=== PATIENT | male | born 1930 | race Hispanic/Latino ===

== ENCOUNTER → 2017-07-19 | Outpatient (CLI) | payer OTHER ==
[~2017-07-19] MED LIST: ASPI-1005 PO; FENO134C PO; IMAT400T2 PO; LISI1TAB11 PO; METO-391 PO; POTA20TA12 PO; SIMV10TA6 PO; SITA100T12 PO; WARF-57 PO; WARF2.5T85 PO
== END | disposition home or self-care (01) ==
LOC: SHCH 14:55
PROVIDERS: ATTEND Internal Medicine Cardiovascular Disease
DX: I07.1 Rheumatic tricuspid insufficiency (principal); Z95.2 Presence of prosthetic heart valve
CPT/HCPCS: 93306

== ENCOUNTER → 2019-03-06 | Outpatient (CLI) | payer OTHER ==
[~2019-03-06] MED LIST changes: -LISI1TAB11 PO; +LISI1TAB28 PO; -SIMV10TA6 PO; +SIMV10TA97 PO
== END | disposition home or self-care (01) ==
LOC: RAH 10:37
PROVIDERS: ATTEND Family Medicine
DX: F03.90 Unspecified dementia, unspecified severity, without behavioral disturbance, psychotic disturbance, mood disturbance, and anxiety (principal)
CPT/HCPCS: 70551

== ENCOUNTER 2019-04-17 16:58 | Emergency (ER) | payer OTHER ==
[2019-04-17 17:57] LABS: BASOPHILS % (AUTO) 1.8 % (0.0-5.0); EOSINOPHILS % (AUTO) 3.5 % (0.0-8.0); HEMATOCRIT 32.8 % (42-54); LYMPHOCYTES % (AUTO) 13.8 % (21.0-51.0); MEAN CORPUSCULAR HEMOGLOBIN 33.2 pg (27.0-33.0); MEAN CORPUSCULAR HGB CONC 33.5 g/dL (32.0-36.0); MEAN CORPUSCULAR VOLUME 99.1 fL (79-99); MONOCYTES % (AUTO) 9.9 % (3.0-13.0); NEUTROPHILS % (AUTO) 70.4 % (40.0-77.0); PLATELET COUNT (AUTO) 148 K/uL (130-400); RED BLOOD CELL COUNT(AUTO) 3.31 MIL/uL (4.50-6.20); RED CELL DISTRIBUTION WIDTH 15.7 % (11.0-15.5); WHITE BLOOD COUNT (AUTO) 5.1 K/uL (4.8-10.8)
[2019-04-17 18:16] LABS: BILIRUBIN,TOTAL 1.8 mg/dL (0.2-1.0); TOTAL PROTEIN, SERUM 6.3 g/dL (6.0-8.3)
[2019-04-17 18:21] LABS: INR 2.6 (0.85-1.15); PROTHROMBIN TIME 26.3 SEC (9.6-11.6)
[2019-04-17 18:34] LABS: APPEARANCE,URINE Clear (CLEAR); BILIRUBIN,URINE Negative (NEGATIVE); COLOR,URINE Dark Yellow (YELLOW); GLUCOSE, URINE (UA) Negative (NEGATIVE); KETONES,URINE Negative (NEGATIVE); LEUKOCYTE ESTERASE ,URINE Small (NEGATIVE); NITRATE,URINE Negative (NEGATIVE); OCCULT BLOOD,URINE Negative (NEGATIVE); PROTEIN,URINE POS 2+ mg/dL (NEGATIVE)
[2019-04-17 18:59] LABS: BACTERIA,URINE Few /HPF (None Seen); MUCUS,URINE Few LPF (None Seen); RBC,URINE None Seen /HPF (0-1); SQUAMOUS EPITHELIAL CELL,UR 0-2 /HPF (0-2)
[2019-04-17] MEDS ORDERED: SODIUM CHLORIDE 0.9% 500ML 500 ML IV ONE (20:40)
[2019-04-17] MEDS ORDERED: FAMOTIDINE/PF 20 MG/2 ML VIAL IV ONE (20:40)
== END 2019-04-17 21:22 | disposition home or self-care (01) ==
LOC: EDH 16:58
DX: R10.13 Epigastric pain (principal); R00.1 Bradycardia, unspecified; R11.2 Nausea with vomiting, unspecified; R19.7 Diarrhea, unspecified; I10 Essential (primary) hypertension; E11.9 Type 2 diabetes mellitus without complications; I48.91 Unspecified atrial fibrillation; Z88.0 Allergy status to penicillin; Z79.82 Long term (current) use of aspirin; Z79.899 Other long term (current) drug therapy
CPT/HCPCS: 36415; 71045; 74176; 80053; 81001; 82550; 83690; 83735; 84484; 85025; 85610; 85730; 93005; 96374; 99285; J3490; J7040

== ENCOUNTER 2019-04-23 11:32 | Observation (INO) | payer OTHER ==
[~2019-04-23] VITALS: Ht 167.6 cm; Wt 77.8 kg
[2019-04-23 12:14] LABS: BASOPHILS % (AUTO) 1.8 % (0.0-5.0); HEMATOCRIT 36.4 % (42-54); LYMPHOCYTES % (AUTO) 14.1 % (21.0-51.0); MEAN CORPUSCULAR HEMOGLOBIN 33.2 pg (27.0-33.0); MEAN CORPUSCULAR HGB CONC 33.5 g/dL (32.0-36.0); MEAN CORPUSCULAR VOLUME 98.9 fL (79-99); MONOCYTES % (AUTO) 8.2 % (3.0-13.0); NEUTROPHILS % (AUTO) 72.3 % (40.0-77.0); PLATELET COUNT (AUTO) 162 K/uL (130-400); RED BLOOD CELL COUNT(AUTO) 3.68 MIL/uL (4.50-6.20)
[2019-04-23 12:51] LABS: APPEARANCE,URINE Clear (CLEAR); BILIRUBIN,URINE Negative (NEGATIVE); COLOR,URINE Yellow (YELLOW); GLUCOSE, URINE (UA) Negative (NEGATIVE); KETONES,URINE Negative (NEGATIVE); LEUKOCYTE ESTERASE ,URINE Small (NEGATIVE); NITRATE,URINE Negative (NEGATIVE); OCCULT BLOOD,URINE Negative (NEGATIVE); PH,URINE 6.5 (5.0-8.0); PROTEIN,URINE POS 2+ mg/dL (NEGATIVE)
[2019-04-23 12:54] LABS: CREATININE 0.9 mg/dL (0.5-1.5); POTASSIUM 3.7 mmol/L (3.5-5.1)
[2019-04-23 12:58] LABS: INR 2.44 (0.85-1.15); PARTIAL THROMBOPLASTIN TIME 35.8 SEC (26.3-35.5); PROTHROMBIN TIME 24.8 SEC (9.6-11.6)
[2019-04-23 13:10] LABS: ALBUMIN 3.5 g/dL (3.5-5.0); BILIRUBIN,TOTAL 1.7 mg/dL (0.2-1.0); TOTAL PROTEIN, SERUM 6.8 g/dL (6.0-8.3)
[2019-04-23 13:29] LABS: BACTERIA,URINE Rare /HPF (None Seen); RBC,URINE 0-1 /HPF (0-1); SQUAMOUS EPITHELIAL CELL,UR Rare /HPF (0-2)
[2019-04-23 13:45] LABS: B-TYPE NATRIURETIC PEPTIDE 784 pg/mL (0-100)
[2019-04-23] MEDS ORDERED: FUROSEMIDE 10 MG/ML 4ML VIAL ONE (15:03)
[2019-04-23] MEDS ORDERED: NITROGLYCERIN 1GM/1 INCH PACKET TD ONE (15:04)
[2019-04-23] MEDS ORDERED: LACTULOSE 20 GM/30 ML UDCUP PO PRN (18:00)
[2019-04-23] MEDS ORDERED: POTASSIUM CHLORIDE 10% ELIXIR 20 MEQ/15 ML UDCUP PO PRN (18:00)
[2019-04-23] MEDS ORDERED: POTASSIUM CHLORIDE 20 MEQ ERTAB PO PRN (18:00)
[2019-04-23] MEDS ORDERED: POTASSIUM CHLORIDE 20MEQ/100ML 100 ML IV PRN (18:00)
[2019-04-23] MEDS ORDERED: ONDANSETRON HCL 4 MG/2 ML VIAL IV PRN (18:00)
[2019-04-23] MEDS ORDERED: MAG HYDROX/AL HYDROX/SIMETH ES 30 ML SUSP UDCUP PO PRN (18:00)
[2019-04-23] MEDS ORDERED: GLUCAGON 1MG KIT 1 MG ML IM PRN (18:00)
[2019-04-23] MEDS ORDERED: ALBUTEROL SULFATE 0.083% 2.5 MG/3 ML INH IH PRN (18:00)
[2019-04-23] MEDS ORDERED: DEXTROSE 50%-WATER 50 ML DISP.SYRIN IV PRN (18:00)
[2019-04-23] MEDS ORDERED: HYDRALAZINE HCL 20 MG/ML VIAL IV PRN (18:00)
[2019-04-23] MEDS ORDERED: GUAIFENESIN-DM 200/20 MG 10 ML PO PRN (18:00)
[2019-04-23] MEDS ORDERED: NITROGLYCERIN 0.4 MG SL TAB SL PRN (18:00)
[2019-04-23] MEDS ORDERED: ACETAMINOPHEN 325 MG TAB PO PRN ×2 (18:00)
[2019-04-23] MEDS ORDERED: LIDOCAINE HCL-MPF 1% 2ML VIAL IV PRN (18:00)
[2019-04-23 19:45] VITALS: BP 153/84
[2019-04-23] MEDS: INSULIN HUMULIN R 100 UNIT/ML 3ML SQ SCH (21:00)
[2019-04-23] MEDS: FAMOTIDINE/PF 20 MG/2 ML VIAL IV SCH (21:25)
[2019-04-23 22:04] LABS: BASOPHILS % (AUTO) 1.5 % (0.0-5.0); HEMATOCRIT 34.6 % (42-54); LYMPHOCYTES % (AUTO) 14.5 % (21.0-51.0); MEAN CORPUSCULAR HGB CONC 33.5 g/dL (32.0-36.0); MEAN CORPUSCULAR VOLUME 98.6 fL (79-99); MONOCYTES % (AUTO) 10.7 % (3.0-13.0); NEUTROPHILS % (AUTO) 69.8 % (40.0-77.0); PLATELET COUNT (AUTO) 143 K/uL (130-400); RED BLOOD CELL COUNT(AUTO) 3.51 MIL/uL (4.50-6.20); RED CELL DISTRIBUTION WIDTH 15.4 % (11.0-15.5); WHITE BLOOD COUNT (AUTO) 6.1 K/uL (4.8-10.8)
[2019-04-23 23:47] VITALS: BP 146/75
[2019-04-24] MEDS ORDERED: DONE5TAB33 PO (01:49)
[2019-04-24] MEDS ORDERED: WARF-57 PO (01:49)
[2019-04-24] MEDS ORDERED: LISI-617 PO (01:49)
[2019-04-24] MEDS ORDERED: FAMO-135 PO (01:49)
[2019-04-24] MEDS ORDERED: TAMS-1 PO (01:49)
[2019-04-24] MEDS ORDERED: FAMOTIDINE 10 MG PO SCH (02:15)
[2019-04-24] MEDS ORDERED: FUROSEMIDE 10 MG/ML 4ML VIAL IVP SCH (03:00)
[2019-04-24 04:00] VITALS: BP 133/81
[2019-04-24 05:36] LABS: HEMOGLOBIN A1C 6.3 % (4.0-6.0)
[2019-04-24] MEDS: INSULIN HUMULIN R 100 UNIT/ML 3ML SQ SCH ×2 (05:41→11:19)
[2019-04-24 05:53] LABS: CREATININE 1.1 mg/dL (0.5-1.5); POTASSIUM 3.1 mmol/L (3.5-5.1); THYROID STIMULATING HORMONE 2.82 uIU/mL (0.36-3.74)
[2019-04-24 07:30] VITALS: BP 144/86
[2019-04-24] MEDS: FAMOTIDINE/PF 20 MG/2 ML VIAL IV SCH (08:43)
[2019-04-24] MEDS ORDERED: METOPROLOL SUCCINATE 50 MG TAB.SR.24H PO SCH (09:00)
[2019-04-24] MEDS ORDERED: TAMSULOSIN HCL 0.4 MG CAP.ER.24H PO SCH (09:00)
[2019-04-24] MEDS ORDERED: ENOXAPARIN SODIUM 30 MG/0.3 ML SQ SCH (09:00)
[2019-04-24] MEDS ORDERED: LISINOPRIL 5 MG TABLET PO SCH (09:00)
[2019-04-24] MEDS ORDERED: LINAGLIPTIN 5 MG TABLET PO SCH (09:00)
[2019-04-24] MEDS ORDERED: ASPIRIN 81MG TAB.CHEW PO SCH (09:00)
[2019-04-24] MEDS ORDERED: IMATINIB MESYLATE 400 MG PO SCH (09:00)
--- NOTE | 2019-04-24 09:23 | NUR ---
DR SARAVIA/CONSULT SPOKE TO MONICA AT [facility]- STATED DR SARAVIA WILL BE BY LATER
[2019-04-24 11:00] VITALS: BP 112/63
[2019-04-24] MEDS ORDERED: POTASSIUM CHLORIDE 20 MEQ ERTAB PO SCH (12:00)
[2019-04-24] MEDS ORDERED: POTA20PA32 PO (13:23)
[2019-04-24] MEDS ORDERED: FURO20TA4 PO (13:23)
[2019-04-24] MEDS ORDERED: WARFARIN SODIUM 5 MG TAB PO SCH (17:00)
[2019-04-24] MEDS ORDERED: DONEPEZIL HCL 5 MG TAB PO SCH (21:00)
[2019-04-24] MEDS ORDERED: SIMVASTATIN 10 MG TABLET PO SCH (21:00)
== END 2019-04-24 15:00 | disposition home or self-care (01) ==
LOC: EDH 11:32 → EDHIP 16:15 → INTOOBSV 16:15 → 4DH 19:40
PROVIDERS: ADMIT Internal Medicine; ATTEND Internal Medicine
DX: I50.33 Acute on chronic diastolic (congestive) heart failure (principal); D63.8 Anemia in other chronic diseases classified elsewhere; E11.9 Type 2 diabetes mellitus without complications; I48.91 Unspecified atrial fibrillation; E78.5 Hyperlipidemia, unspecified; N40.0 Benign prostatic hyperplasia without lower urinary tract symptoms; Z95.2 Presence of prosthetic heart valve; Z79.01 Long term (current) use of anticoagulants; Z90.49 Acquired absence of other specified parts of digestive tract; Z88.0 Allergy status to penicillin
CPT/HCPCS: 36415 ×2; 71045 ×2; 74176; 80048; 80053; 81001; 82150; 82550; 82948 ×3; 83036; 83690; 83880; 84439; 84443; 84484; 85025 ×2; 85610; 85730; 87040 ×2; 87804 ×2; 93005; 93306; 94664; 96374; 96375; 96376; 99285; G0378 ×9; J1940 ×2; J3490

== ENCOUNTER 2019-05-15 20:12 | Emergency (ER) | payer OTHER ==
[~2019-05-15 20:12] MED LIST changes: +DONE5TAB33 PO; +FAMO-135 PO; -FENO134C PO; +LISI10TA7 PO; -LISI1TAB28 PO; -METO-391 PO; +TAMS-1 PO; -WARF2.5T85 PO
[2019-05-15] MEDS ORDERED: ONDANSETRON HCL 4 MG/2 ML VIAL ONE (20:37)
[2019-05-15] MEDS ORDERED: MORPHINE SULFATE 4 MG/1ML SYG ONE (20:38)
[2019-05-15 20:45] LABS: BASOPHILS % (AUTO) 1.3 % (0.0-5.0); EOSINOPHILS % (AUTO) 3.7 % (0.0-8.0); HEMATOCRIT 34.2 % (42-54); LYMPHOCYTES % (AUTO) 14.4 % (21.0-51.0); MEAN CORPUSCULAR HEMOGLOBIN 32.9 pg (27.0-33.0); MEAN CORPUSCULAR VOLUME 99.7 fL (79-99); MONOCYTES % (AUTO) 9.3 % (3.0-13.0); NEUTROPHILS % (AUTO) 70.9 % (40.0-77.0); PLATELET COUNT (AUTO) 141 K/uL (130-400); RED BLOOD CELL COUNT(AUTO) 3.43 MIL/uL (4.50-6.20); RED CELL DISTRIBUTION WIDTH 14.2 % (11.0-15.5); WHITE BLOOD COUNT (AUTO) 4.6 K/uL (4.8-10.8)
[2019-05-15 20:53] LABS: CREATININE 1.2 mg/dL (0.5-1.5); POTASSIUM 3.9 mmol/L (3.5-5.1)
[2019-05-15 20:56] LABS: INR 3.09 (0.85-1.15); PARTIAL THROMBOPLASTIN TIME 38.2 SEC (26.3-35.5)
[2019-05-15 20:58] LABS: ALBUMIN 3.4 g/dL (3.5-5.0); BILIRUBIN,TOTAL 1.6 mg/dL (0.2-1.0); TOTAL PROTEIN, SERUM 6.9 g/dL (6.0-8.3)
[2019-05-15 21:00] LABS: APPEARANCE,URINE Turbid (CLEAR); BILIRUBIN,URINE Negative (NEGATIVE); COLOR,URINE Dark Yellow (YELLOW); GLUCOSE, URINE (UA) Negative (NEGATIVE); KETONES,URINE Trace mg/dL (NEGATIVE); LEUKOCYTE ESTERASE ,URINE Moderate (NEGATIVE); NITRATE,URINE Negative (NEGATIVE); OCCULT BLOOD,URINE Negative (NEGATIVE); PH,URINE 5.5 (5.0-8.0); PROTEIN,URINE POS 2+ mg/dL (NEGATIVE)
[2019-05-15 21:16] LABS: BACTERIA,URINE Few /HPF (None Seen); RBC,URINE None Seen /HPF (0-1)
[2019-05-15 21:17] LABS: MUCUS,URINE Many LPF (None Seen); SQUAMOUS EPITHELIAL CELL,UR None Seen /HPF (0-2)
[2019-05-15] MEDS ORDERED: SODIUM CHLORIDE 0.9% 50 ML IV ONE (22:07)
[2019-05-15] MEDS ORDERED: CEFTRIAXONE SODIUM 1 GM ONE (22:07)
== END 2019-05-15 23:05 | disposition home or self-care (01) ==
LOC: EDH 20:12
DX: N39.0 Urinary tract infection, site not specified (principal); I10 Essential (primary) hypertension; I48.91 Unspecified atrial fibrillation; E11.9 Type 2 diabetes mellitus without complications; E78.00 Pure hypercholesterolemia, unspecified; Z88.0 Allergy status to penicillin; Z95.1 Presence of aortocoronary bypass graft
CPT/HCPCS: 36415; 74176; 80053; 81001; 82550; 83690; 84484; 85025; 85610; 85730; 93005; 96374; 96375; 99285; J0696; J2270; J2405

== ENCOUNTER 2019-05-19 06:24 | Emergency (ER) | payer OTHER ==
[2019-05-19 07:44] LABS: BASOPHILS % (AUTO) 1.6 % (0.0-5.0); EOSINOPHILS % (AUTO) 3.4 % (0.0-8.0); HEMATOCRIT 33.3 % (42-54); LYMPHOCYTES % (AUTO) 14.8 % (21.0-51.0); MEAN CORPUSCULAR HEMOGLOBIN 33.8 pg (27.0-33.0); MEAN CORPUSCULAR HGB CONC 33.3 g/dL (32.0-36.0); MEAN CORPUSCULAR VOLUME 101.5 fL (79-99); MONOCYTES % (AUTO) 8.5 % (3.0-13.0); NEUTROPHILS % (AUTO) 71.2 % (40.0-77.0); PLATELET COUNT (AUTO) 132 K/uL (130-400); RED BLOOD CELL COUNT(AUTO) 3.28 MIL/uL (4.50-6.20); WHITE BLOOD COUNT (AUTO) 3.9 K/uL (4.8-10.8)
[2019-05-19 07:48] LABS: CREATININE 1.3 mg/dL (0.5-1.5); POTASSIUM 4.1 mmol/L (3.5-5.1)
[2019-05-19 07:51] LABS: ALBUMIN 3.6 g/dL (3.5-5.0); BILIRUBIN,TOTAL 1.6 mg/dL (0.2-1.0)
[2019-05-19] MEDS ORDERED: ONDANSETRON HCL 4 MG/2 ML VIAL ONE (09:10)
[2019-05-19 10:13] LABS: APPEARANCE,URINE Clear (CLEAR); BILIRUBIN,URINE Negative (NEGATIVE); COLOR,URINE Yellow (YELLOW); GLUCOSE, URINE (UA) Negative (NEGATIVE); KETONES,URINE Trace mg/dL (NEGATIVE); LEUKOCYTE ESTERASE ,URINE Small (NEGATIVE); NITRATE,URINE Negative (NEGATIVE); OCCULT BLOOD,URINE Negative (NEGATIVE); PROTEIN,URINE POS 1+ mg/dL (NEGATIVE); UROBILINOGEN,URINE 0.2 mg/dL (0.2-1.0)
[2019-05-19 10:20] LABS: BACTERIA,URINE Few /HPF (None Seen); MUCUS,URINE Few LPF (None Seen); RBC,URINE 0-1 /HPF (0-1); SQUAMOUS EPITHELIAL CELL,UR Few /HPF (0-2)
== END 2019-05-19 20:12 | disposition home or self-care (01) ==
LOC: EDH 06:24
DX: R10.9 Unspecified abdominal pain (principal); J90 Pleural effusion, not elsewhere classified; R11.2 Nausea with vomiting, unspecified; I10 Essential (primary) hypertension; E11.9 Type 2 diabetes mellitus without complications; I48.91 Unspecified atrial fibrillation; E78.00 Pure hypercholesterolemia, unspecified; Z88.0 Allergy status to penicillin; Z79.899 Other long term (current) drug therapy; Z95.1 Presence of aortocoronary bypass graft
CPT/HCPCS: 36415; 74176; 80053; 81001; 82150; 83690; 85025; 93005; 96374; 99285; J2405

== ENCOUNTER 2019-06-28 06:00 | Day surgery (SDC) | payer OTHER ==
[~2019-06-28 06:00] MED LIST changes: +DRON400T2 PO; -FAMO-135 PO; +LISI-617 PO; -LISI10TA7 PO
--- NOTE | 2019-06-28 06:35 | NUR ---
EKG pt EKG sinus rhythm on admission to day patient .notified Mariela Petersen RN of results Dr Dhillon notified Addendum: 06/28/19 at 0742 by RAJ CHEUNG RN RN Amended: Links added.
[2019-06-28 06:39] LABS: BASOPHILS % (AUTO) 1.4 % (0.0-5.0); EOSINOPHILS % (AUTO) 2.5 % (0.0-8.0); LYMPHOCYTES % (AUTO) 20.5 % (21.0-51.0); MEAN CORPUSCULAR HEMOGLOBIN 33.7 pg (27.0-33.0); MEAN CORPUSCULAR HGB CONC 33.5 g/dL (32.0-36.0); MEAN CORPUSCULAR VOLUME 100.6 fL (79-99); MONOCYTES % (AUTO) 8.1 % (3.0-13.0); PLATELET COUNT (AUTO) 110 K/uL (130-400); RED BLOOD CELL COUNT(AUTO) 3.38 MIL/uL (4.50-6.20); RED CELL DISTRIBUTION WIDTH 13.5 % (11.0-15.5); WHITE BLOOD COUNT (AUTO) 4.4 K/uL (4.8-10.8)
[2019-06-28 06:52] LABS: CREATININE 1.2 mg/dL (0.5-1.5)
[2019-06-28 06:53] LABS: INR 1.54 (0.85-1.15); PROTHROMBIN TIME 16.4 SEC (9.6-11.6)
--- NOTE | 2019-06-28 07:15 | NUR ---
Dr Dhillon cancelled case . Instructed pt Dr Dhillon will call with instructions in the afternoon pt and daughter aware Addendum: 06/28/19 at 0746 by RAJ CHEUNG RN RN Amended: Links added.
== END 2019-06-28 07:20 | disposition home or self-care (01) ==
LOC: DAH 06:00
PROVIDERS: ATTEND Internal Medicine Cardiovascular Disease
DX: I48.19 Other persistent atrial fibrillation (principal); I25.10 Atherosclerotic heart disease of native coronary artery without angina pectoris; I10 Essential (primary) hypertension; F03.90 Unspecified dementia, unspecified severity, without behavioral disturbance, psychotic disturbance, mood disturbance, and anxiety; E11.9 Type 2 diabetes mellitus without complications; Z95.1 Presence of aortocoronary bypass graft; Z95.2 Presence of prosthetic heart valve; Z53.8 Procedure and treatment not carried out for other reasons; I45.10 Unspecified right bundle-branch block
CPT/HCPCS: 36415; 80048; 82948; 85025; 85610; 85730; 93005; A4222; A4223; A4606

== ENCOUNTER → 2019-07-11 | Outpatient (CLI) | payer OTHER | END | disposition home or self-care (01) | LOC: RAH 07:48 | PROVIDERS: ATTEND Internal Medicine Gastroenterology | DX: K74.60 Unspecified cirrhosis of liver (principal); Z90.49 Acquired absence of other specified parts of digestive tract | CPT/HCPCS: 76700; 93975 ==

== ENCOUNTER → 2019-07-14 | Outpatient (CLI) | payer OTHER | END | disposition home or self-care (01) | LOC: SHCH 12:32 | PROVIDERS: ATTEND Internal Medicine Cardiovascular Disease | DX: I36.1 Nonrheumatic tricuspid (valve) insufficiency (principal) | CPT/HCPCS: 93306; 93356 ==

== ENCOUNTER 2019-08-10 06:01 | Observation (INO) | payer OTHER ==
[~2019-08-10] VITALS: Ht 167.6 cm; Wt 76.6 kg
[2019-08-10] VITALS (11 sets, daily range): BP systolic 88–150; BP diastolic 35–66; PULSE 51–61; RESP 16–18; TEMP 97.2–98.1
[~2019-08-10 06:01] MED LIST changes: -ASPI-1005 PO; -DONE5TAB33 PO; -DRON400T2 PO; -IMAT400T2 PO; -LISI-617 PO; -POTA20TA12 PO; -SIMV10TA97 PO; -SITA100T12 PO; +SODIUM CHLORIDE 0.9% 1000ML 1,000 ML IV ONE; -TAMS-1 PO; -WARF-57 PO
[2019-08-10] MEDS ORDERED: SODIUM CHLORIDE 0.9% 1000ML 1,000 ML IV ONE (06:13)
[2019-08-10] MEDS ORDERED: LIDOCAINE HCL 1% 20 ML VIAL ONE (08:01)
[2019-08-10] MEDS ORDERED: PROPOFOL 10 MG/ML 20ML VIAL IV ONE ×2 (08:01)
[2019-08-10] MEDS ORDERED: LIDOCAINE HCL-MPF 2% 5ML VIAL ONE (08:01)
[2019-08-10] MEDS ORDERED: GLYCOPYRROLATE 1 MG/5 ML SYRINGE ONE (08:07)
[2019-08-10] MEDS ORDERED: ATROPINE SULFATE 0.1 MG/ML 10 ML SYG IVP ONE (08:08)
[2019-08-10] MEDS ORDERED: EPINEPHRINE 1 MG/ML AMPULE ONE (08:10)
--- NOTE | 2019-08-10 08:15 | NUR ---
EGD CANCEL PER SR OJEDA, PULSE DECREASE TO 37, ROBINNAL AND ATROPINE GIVEN. PULSE INCREASE TO 58. TRANSFER TO PACU AND ADMITTED PER HOSPITALIST.
--- NOTE | 2019-08-10 08:20 | NUR ---
CONSULT CARDIOLOGY OR HOSPITALIST PER DR. OJEDA DUE TO BRADYCARDIA (HR 30'S) DURING INDUCTION OF ANESTHESIA.
--- NOTE | 2019-08-10 08:31 | NUR ---
CONSULT HOSPITALIST CONSULT ORDER PER DR. OJEDA ANESTHESIOLOGIST DUE TO BRADYCARDIA AND CLEARANCE FOR DISCHARGE, PROCEDURE ABORTED. DR. HILARIO NOTIFIED OF CONSULT, WILL COME TO PACU TO ASSESS. Addendum: 08/10/19 at 0926 by SOFI MATA RN RN CORRECTION: PROCEDURE NOT DONE.
--- NOTE | 2019-08-10 08:58 | NUR ---
CARDIOLOGY CONSULT DR. PERALES CONSULT ORDERED BY DR. HILARIO. DR. PERALES OFFICE NOTIFIED, SPOKE TO ZORA.
[2019-08-10] MEDS: LISINOPRIL 5 MG TABLET PO SCH (09:00)
[2019-08-10] MEDS ORDERED: DRONEDARONE HYDROCHLORIDE 400 MG TABLET PO SCH (09:00)
[2019-08-10] MEDS: IMATINIB MESYLATE 400 MG PO SCH (09:00)
[2019-08-10] MEDS ORDERED: ONDANSETRON HCL 4 MG/2 ML VIAL IVP PRN (12:15)
[2019-08-10] MEDS ORDERED: ACETAMINOPHEN 325 MG TAB PO PRN (12:15)
[2019-08-10] MEDS: POTASSIUM CHLORIDE 20 MEQ ERTAB PO SCH (18:43)
[2019-08-10] MEDS: SIMVASTATIN 10 MG TABLET PO SCH (19:57)
[2019-08-10] MEDS: TAMSULOSIN HCL 0.4 MG CAP.ER.24H PO SCH (19:57)
[2019-08-11 04:10] VITALS: BP 151/55; PULSE 50; RESP 16; TEMP 97.9
[2019-08-11 07:30] VITALS: BP 144/62; PULSE 52; RESP 18; TEMP 97.6
[2019-08-11] MEDS ORDERED: DRONEDARONE HYDROCHLORIDE 400 MG TABLET PO SCH (09:00)
[2019-08-11] MEDS: IMATINIB MESYLATE 400 MG PO SCH (09:00)
[2019-08-11] MEDS: LISINOPRIL 5 MG TABLET PO SCH (10:02)
[2019-08-11] MEDS: ENOXAPARIN SODIUM 80 MG/0.8 ML SQ SCH ×2 (10:02→20:20)
[2019-08-11] MEDS: FAMOTIDINE 20MG TAB 20 MG TAB PO SCH (10:02)
[2019-08-11 11:00] VITALS: BP 146/52; PULSE 50; RESP 18; TEMP 98
--- NOTE | 2019-08-11 11:43 | NUR ---
cm note met with patient and states resides at home with spouse, independent with adls and self care. no services no dme. dc plan is back to home at time of dc. daughter transports to md. Addendum: 08/11/19 at 1146 by LEVY BOONE CM Amended: Links added.
--- NOTE | 2019-08-11 13:10 | NUR ---
COUMADIN NUTRITION EDUCATION IVANIA provided Coumadin Nutrition education to Pt. RD reviewed handouts and discussed monitored foods. Pt verbalized understanding. RD to continue to monitor. Addendum: 08/11/19 at [address] Amended: Links added.
[2019-08-11 15:30] VITALS: BP 142/92; PULSE 53; RESP 18; TEMP 97.8
[2019-08-11] MEDS: WARFARIN SODIUM 5 MG TAB PO SCH (16:37)
[2019-08-11] MEDS: POTASSIUM CHLORIDE 20 MEQ ERTAB PO SCH (16:37)
[2019-08-11 19:00] VITALS: BP 155/70; PULSE 52; RESP 18; TEMP 97.8
[2019-08-11] MEDS: SIMVASTATIN 10 MG TABLET PO SCH (20:19)
[2019-08-11] MEDS: TAMSULOSIN HCL 0.4 MG CAP.ER.24H PO SCH (20:19)
[2019-08-11 23:00] VITALS: BP 128/48; PULSE 57; RESP 20; TEMP 98.7
[2019-08-12 03:00] VITALS: BP 124/71; PULSE 60; RESP 20; TEMP 98.6
[2019-08-12 08:00] VITALS: BP 161/71; PULSE 57; RESP 16; TEMP 97.8
[2019-08-12] MEDS: LISINOPRIL 5 MG TABLET PO SCH (08:43)
[2019-08-12] MEDS: FAMOTIDINE 20MG TAB 20 MG TAB PO SCH (08:44)
[2019-08-12] MEDS: ENOXAPARIN SODIUM 80 MG/0.8 ML SQ SCH (08:44)
[2019-08-12] MEDS: IMATINIB MESYLATE 400 MG PO SCH (08:44)
[2019-08-12 12:00] VITALS: BP 127/52; PULSE 57; RESP 15; TEMP 98
[2019-08-12] MEDS: POTASSIUM CHLORIDE 20 MEQ ERTAB PO SCH (16:35)
[2019-08-12] MEDS: WARFARIN SODIUM 5 MG TAB PO SCH (16:35)
--- NOTE | 2019-08-12 17:56 | NUR ---
DISCHARGE INSTRUCTIONS/INFORMATION GIVEN TO PATIENT. TEACH BACK METHOD USED TO EDUCATE PATIENT ON CHANGES IN MEDS( STOP ASPIRIN, ONLY TAKE 200MG OF MULTAQ BID), S/S TO MONITOR, WHEN TO CALL MD, AND F/U APPOINTMENT. PIV REMOVED. TIP WAS INTACT. TELE PACK REMOVED AND RETURNED. ALL BELONGINGS WERE PACKED. SAFELY WHEELED BY CASH RIVAS.
== END 2019-08-12 18:05 | disposition home or self-care (01) ==
LOC: DAH 06:01 → DAHIP 06:02 → 4CH 10:39
PROVIDERS: ADMIT Internal Medicine; ATTEND Internal Medicine
DX: Z03.818 Encounter for observation for suspected exposure to other biological agents ruled out (principal); R00.1 Bradycardia, unspecified; I48.0 Paroxysmal atrial fibrillation; E78.5 Hyperlipidemia, unspecified; R63.4 Abnormal weight loss; R94.31 Abnormal electrocardiogram [ECG] [EKG]; F02.80 Dementia in other diseases classified elsewhere, unspecified severity, without behavioral disturbance, psychotic disturbance, mood disturbance, and anxiety; G30.9 Alzheimer's disease, unspecified; N40.0 Benign prostatic hyperplasia without lower urinary tract symptoms; I10 Essential (primary) hypertension; E11.9 Type 2 diabetes mellitus without complications; D64.9 Anemia, unspecified; I35.9 Nonrheumatic aortic valve disorder, unspecified; I25.10 Atherosclerotic heart disease of native coronary artery without angina pectoris; K74.60 Unspecified cirrhosis of liver; Z85.6 Personal history of leukemia; Z90.49 Acquired absence of other specified parts of digestive tract; Z95.2 Presence of prosthetic heart valve; Z95.1 Presence of aortocoronary bypass graft; Z79.01 Long term (current) use of anticoagulants; Z79.899 Other long term (current) drug therapy; Z88.0 Allergy status to penicillin
CPT/HCPCS: 36415 ×4; 70450; 80048 ×2; 80053; 82550; 82948 ×3; 83735; 83874; 84443; 84484; 85025 ×2; 85610 ×4; 85730 ×3; 93005 ×2; 96372 ×2; A4215; A4221; A4222; A4223; A4606; A4620; A4663; G0378 ×56; J0171; J0461; J1650 ×3; J2704 ×2; J3490 ×2; J7030 ×3; U0003

== ENCOUNTER → 2019-10-23 | Outpatient (CLI) | payer OTHER ==
[~2019-10-23] MED LIST changes: +DONE5TAB33 PO; +DRON400T2 PO; +IMAT400T2 PO; +LISI-617 PO; +POTA20TA12 PO; +SIMV10TA97 PO; +SITA100T12 PO; -SODIUM CHLORIDE 0.9% 1000ML 1,000 ML IV ONE; +TAMS-1 PO; +WARF-57 PO
== END | disposition home or self-care (01) ==
LOC: DAH 10:00 → EDSTATUS 10-27 07:30
PROVIDERS: ATTEND Internal Medicine
DX: U07.1 COVID-19 (principal); Z01.818 Encounter for other preprocedural examination; R63.4 Abnormal weight loss; R11.0 Nausea; K74.60 Unspecified cirrhosis of liver
CPT/HCPCS: C9803; U0003

== ENCOUNTER 2019-11-02 20:10 | Observation (INO) | payer OTHER ==
[2019-11-02 20:48] LABS: BASOPHILS % (AUTO) 1.6 % (0.0-5.0); EOSINOPHILS % (AUTO) 3.8 % (0.0-8.0); HEMATOCRIT 25.7 % (42-54); LYMPHOCYTES % (AUTO) 18.7 % (21.0-51.0); MEAN CORPUSCULAR HEMOGLOBIN 33.7 pg (27.0-33.0); MEAN CORPUSCULAR HGB CONC 33.9 g/dL (32.0-36.0); MEAN CORPUSCULAR VOLUME 99.6 fL (79-99); MONOCYTES % (AUTO) 10.1 % (3.0-13.0); NEUTROPHILS % (AUTO) 65.5 % (40.0-77.0); PLATELET COUNT (AUTO) 115 K/uL (130-400); RED BLOOD CELL COUNT(AUTO) 2.58 MIL/uL (4.50-6.20); RED CELL DISTRIBUTION WIDTH 14.5 % (11.0-15.5); WHITE BLOOD COUNT (AUTO) 3.2 K/uL (4.8-10.8)
[2019-11-02 21:00] LABS: INR 2.17 (0.85-1.15); PARTIAL THROMBOPLASTIN TIME 36.3 SEC (26.3-35.5); PROTHROMBIN TIME 22.7 SEC (9.6-11.6)
[2019-11-02 21:20] LABS: CREATININE 1.7 mg/dL (0.5-1.5); POTASSIUM 4.7 mmol/L (3.5-5.1)
[2019-11-02 21:24] LABS: ALBUMIN 3.1 g/dL (3.5-5.0); BILIRUBIN,TOTAL 1.2 mg/dL (0.2-1.0); TOTAL PROTEIN, SERUM 6.4 g/dL (6.0-8.3)
[2019-11-02] MEDS ORDERED: LEVOFLOXACIN 500 MG/D5W 100 ML 100 ML ONE (21:43)
[2019-11-02] MEDS ORDERED: SODIUM CHLORIDE 0.9% 500ML 500 ML IV ONE (21:45)
[2019-11-02 22:02] LABS: ABG BASE EXCESS -1.9 mmol/L (-2.0-3.0); ABG HCO3 21.7 mmol/L (21.0-28.0); ABG OXYGEN SATURATION 96.8 % (95.0-99.0); ABG PCO2 34 mmHg (35-48)
[2019-11-02] MEDS ORDERED: PANTOPRAZOLE 40 MG/VIAL ONE (23:55)
[2019-11-02 23:57] LABS: TROPONIN I 0.04 ng/mL (0.00-0.06)
[2019-11-03] MEDS ORDERED: ONDANSETRON HCL 4 MG/2 ML VIAL IVP PRN (01:45)
[2019-11-03] MEDS ORDERED: ACETAMINOPHEN 325 MG TAB PO PRN (01:45)
[2019-11-03] MEDS ORDERED: DOPAMINE 800MG/D5 250ML 250 ML IV PRN (01:45)
[2019-11-03 07:42] LABS: EOSINOPHILS % (AUTO) 4.8 % (0.0-8.0); HEMATOCRIT 24.5 % (42-54); LYMPHOCYTES % (AUTO) 23.8 % (21.0-51.0); MEAN CORPUSCULAR HEMOGLOBIN 34.2 pg (27.0-33.0); MEAN CORPUSCULAR HGB CONC 33.9 g/dL (32.0-36.0); MEAN CORPUSCULAR VOLUME 100.8 fL (79-99); MONOCYTES % (AUTO) 11.7 % (3.0-13.0); NEUTROPHILS % (AUTO) 57.3 % (40.0-77.0); PLATELET COUNT (AUTO) 101 K/uL (130-400); RED BLOOD CELL COUNT(AUTO) 2.43 MIL/uL (4.50-6.20); RED CELL DISTRIBUTION WIDTH 14.5 % (11.0-15.5); WHITE BLOOD COUNT (AUTO) 2.5 K/uL (4.8-10.8)
[2019-11-03] MEDS ORDERED: PANTOPRAZOLE 40 MG/VIAL ONE (07:46)
[2019-11-03 07:54] LABS: ALBUMIN 2.5 g/dL (3.5-5.0); CREATININE 1.3 mg/dL (0.5-1.5); POTASSIUM 4.4 mmol/L (3.5-5.1); TOTAL PROTEIN, SERUM 5.4 g/dL (6.0-8.3)
[2019-11-03] MEDS ORDERED: PANTOPRAZOLE 40 MG/VIAL IVP SCH (09:00)
[2019-11-03 09:10] LABS: BAND NEUTROPHILS % (MANUAL) 2 % (0-2); EOSINOPHILS % (MANUAL) 6 % (1-6); LYMPHOCYTES % (MANUAL) 25 % (22-44); MAN.DIFF COMMENT-IMPRESSION MANUAL DIFFERENTIAL; MONOCYTES % (MANUAL) 5 % (2-9); SEGMENTED NEUTROPHILS % 62 % (40-70)
[2019-11-03 09:11] LABS: PLATELET MORPHOLOGY COMMENT SLIGHTLY DECREASED
[2019-11-03 10:29] LABS: TROPONIN I 0.06 ng/mL (0.00-0.06)
[2019-11-03] MEDS ORDERED: AMIO200T5 PO (11:27)
--- NOTE | 2019-11-03 14:25 | NUR ---
Patient has history of dementia, advised nurse to give discharge to family and patient when family arrives.
== END 2019-11-03 15:08 | disposition home or self-care (01) ==
LOC: EDH 20:10 → INTOOBSV 23:00 → EDHIP 23:00
PROVIDERS: ADMIT Internal Medicine; ATTEND Internal Medicine
DX: U07.1 COVID-19 (principal); J12.89 Other viral pneumonia; I11.0 Hypertensive heart disease with heart failure; I50.42 Chronic combined systolic (congestive) and diastolic (congestive) heart failure; I25.10 Atherosclerotic heart disease of native coronary artery without angina pectoris; E78.5 Hyperlipidemia, unspecified; E11.9 Type 2 diabetes mellitus without complications; I48.91 Unspecified atrial fibrillation; I44.1 Atrioventricular block, second degree; I45.2 Bifascicular block; Z79.899 Other long term (current) drug therapy; Z85.6 Personal history of leukemia; Z88.0 Allergy status to penicillin; Z95.1 Presence of aortocoronary bypass graft; Z95.2 Presence of prosthetic heart valve
CPT/HCPCS: 36415 ×2; 36600; 71045 ×2; 80053 ×2; 82550 ×3; 82803; 83605; 83735; 83874 ×2; 84100; 84145; 84484 ×3; 85025 ×2; 85610; 85730; 86900; 86901; 87040 ×2; 93005 ×3; 99285; C9113 ×2; G0378 ×2; J1956; J7040

== ENCOUNTER 2019-11-14 08:08 | Day surgery (SDC) | payer OTHER ==
[~2019-11-14] VITALS: Ht 167.6 cm; Wt 73.0 kg
[~2019-11-14 08:08] MED LIST changes: +AMIO200T5 PO; -DRON400T2 PO; +IRON PO; +SODIUM CHLORIDE 0.9% 1000ML 1,000 ML IV ONE
[2019-11-14 09:31] LABS: INR 2.26 (0.85-1.15); PROTHROMBIN TIME 23.7 SEC (9.6-11.6)
[2019-11-14 09:44] VITALS: BP 119/52
[2019-11-14] MEDS ORDERED: FISH1CAP63 PO (10:02)
[2019-11-14] MEDS ORDERED: ONDA4TAB10 PO (10:02)
[2019-11-14] MEDS ORDERED: VITA1CAP PO (10:02)
[2019-11-14] MEDS ORDERED: POTA20TA82 PO (10:02)
[2019-11-14] MEDS ORDERED: PROPOFOL 10 MG/ML 20ML VIAL IV ONE ×2 (10:21)
[2019-11-14] MEDS ORDERED: EPHEDRINE SULFATE 50 MG/ML AMPULE ONE (10:44)
[2019-11-14 10:55] VITALS: BP 100/41
[2019-11-14 11:00] VITALS: BP 115/52
[2019-11-14 11:05] VITALS: BP 106/46
[2019-11-14 11:10] VITALS: BP 114/55
[2019-11-14 11:15] VITALS: BP 118/53
== END 2019-11-14 11:25 | disposition home or self-care (01) ==
LOC: DAH 08:08
PROVIDERS: ATTEND Internal Medicine Gastroenterology
DX: K74.60 Unspecified cirrhosis of liver (principal); K22.2 Esophageal obstruction; K31.89 Other diseases of stomach and duodenum; K76.6 Portal hypertension; E11.9 Type 2 diabetes mellitus without complications; I10 Essential (primary) hypertension; E78.5 Hyperlipidemia, unspecified; K57.30 Diverticulosis of large intestine without perforation or abscess without bleeding; R63.4 Abnormal weight loss; I48.20 Chronic atrial fibrillation, unspecified; Z79.01 Long term (current) use of anticoagulants; Z79.82 Long term (current) use of aspirin; Z79.84 Long term (current) use of oral hypoglycemic drugs; Z79.899 Other long term (current) drug therapy
CPT/HCPCS: 36415; 43235; 82948 ×2; 85610; A4215; A4221; A4222; A4223; A4606; A4615; A4657; A4663; J2704 ×2; J3490; J7030

== ENCOUNTER → 2019-12-19 | Outpatient (CLI) | payer OTHER ==
[~2019-12-19] MED LIST changes: -AMIO200T5 PO; +AMIO200T6 PO; -DONE5TAB33 PO; +FISH1CAP63 PO; +ONDA4TAB10 PO; +POTA20TA82 PO; -SODIUM CHLORIDE 0.9% 1000ML 1,000 ML IV ONE; +VITA1CAP PO
[2019-12-19 12:58] LABS: BASOPHILS % (AUTO) 2.2 % (0.0-5.0); EOSINOPHILS % (AUTO) 4.4 % (0.0-8.0); HEMATOCRIT 27.1 % (42-54); LYMPHOCYTES % (AUTO) 28.3 % (21.0-51.0); MEAN CORPUSCULAR HEMOGLOBIN 35.1 pg (27.0-33.0); MEAN CORPUSCULAR HGB CONC 33.9 g/dL (32.0-36.0); MEAN CORPUSCULAR VOLUME 103.4 fL (79-99); NEUTROPHILS % (AUTO) 55.1 % (40.0-77.0); PLATELET COUNT (AUTO) 108 K/uL (130-400); RED BLOOD CELL COUNT(AUTO) 2.62 MIL/uL (4.50-6.20); RED CELL DISTRIBUTION WIDTH 16.4 % (11.0-15.5); WHITE BLOOD COUNT (AUTO) 1.8 K/uL (4.8-10.8)
[2019-12-19 13:09] LABS: POTASSIUM 3.8 mmol/L (3.5-5.1)
[2019-12-19 13:35] LABS: BASOPHILS % (MANUAL) 2 % (0-2); EOSINOPHILS % (MANUAL) 6 % (1-6); LYMPHOCYTES % (MANUAL) 27 % (22-44); MAN.DIFF COMMENT-IMPRESSION MANUAL DIFFERENTIAL; MONOCYTES % (MANUAL) 8 % (2-9); PLATELET MORPHOLOGY COMMENT SLIGHTLY DECREASED; SEGMENTED NEUTROPHILS % 57 % (40-70)
== END | disposition home or self-care (01) ==
LOC: DAH 10:00 → EDSTATUS 12-20 08:00
PROVIDERS: ATTEND Internal Medicine Cardiovascular Disease
DX: Z01.818 Encounter for other preprocedural examination (principal); I48.0 Paroxysmal atrial fibrillation; I44.2 Atrioventricular block, complete; I45.10 Unspecified right bundle-branch block; I10 Essential (primary) hypertension; E11.9 Type 2 diabetes mellitus without complications; E78.5 Hyperlipidemia, unspecified; F03.90 Unspecified dementia, unspecified severity, without behavioral disturbance, psychotic disturbance, mood disturbance, and anxiety; N40.0 Benign prostatic hyperplasia without lower urinary tract symptoms; I25.10 Atherosclerotic heart disease of native coronary artery without angina pectoris; Z95.1 Presence of aortocoronary bypass graft; Z98.890 Other specified postprocedural states; Z79.899 Other long term (current) drug therapy; Z90.49 Acquired absence of other specified parts of digestive tract; Z88.0 Allergy status to penicillin; Z79.84 Long term (current) use of oral hypoglycemic drugs; Z79.01 Long term (current) use of anticoagulants
CPT/HCPCS: 36415; 80048; 85025

== ENCOUNTER → 2020-01-10 | Outpatient (CLI) | payer OTHER | END | disposition home or self-care (01) | LOC: RAH 10:00 | PROVIDERS: ATTEND Internal Medicine Gastroenterology | DX: K74.60 Unspecified cirrhosis of liver (principal) | CPT/HCPCS: 76700; 93975 ==

== ENCOUNTER 2020-08-31 13:19 | Inpatient (IN) | payer OTHER ==
[~2020-08-31] VITALS: Ht 172.7 cm; Wt 74.1 kg
[~2020-08-31 13:19] MED LIST changes: -AMIO200T6 PO; -FISH1CAP63 PO; +FURO20TA4 PO; -IMAT400T2 PO; +IMAT400T7 PO; -IRON PO; -LISI-617 PO; +LISI-809 PO; -POTA20TA82 PO; -VITA1CAP PO; +WARF2.5T85 PO
[2020-08-31 13:58] LABS: BASOPHILS % (AUTO) 1.4 % (0.0-5.0); LYMPHOCYTES % (AUTO) 21.3 % (21.0-51.0); MEAN CORPUSCULAR HEMOGLOBIN 35.1 pg (27.0-33.0); MEAN CORPUSCULAR HGB CONC 33.5 g/dL (32.0-36.0); MEAN CORPUSCULAR VOLUME 104.8 fL (79-99); MONOCYTES % (AUTO) 10.4 % (3.0-13.0); NEUTROPHILS % (AUTO) 59.6 % (40.0-77.0); PLATELET COUNT (AUTO) 105 K/uL (130-400); RED BLOOD CELL COUNT(AUTO) 2.48 MIL/uL (4.50-6.20); RED CELL DISTRIBUTION WIDTH 14.5 % (11.0-15.5); WHITE BLOOD COUNT (AUTO) 3.6 K/uL (4.8-10.8)
[2020-08-31 14:10] LABS: CREATININE 1.1 mg/dL (0.5-1.5); POTASSIUM 3.8 mmol/L (3.5-5.1)
[2020-08-31 14:12] LABS: ALBUMIN 3.1 g/dL (3.5-5.0); BILIRUBIN,TOTAL 1.1 mg/dL (0.2-1.0); TOTAL PROTEIN, SERUM 6.8 g/dL (6.0-8.3)
[2020-08-31] MEDS ORDERED: 0.9%NACL 1000ML 1,000 ML IV ONE ×2 (14:30→14:33)
[2020-08-31 14:49] LABS: APPEARANCE,URINE Clear (CLEAR); BILIRUBIN,URINE Small (NEGATIVE); COLOR,URINE Dark Yellow (YELLOW); GLUCOSE, URINE (UA) Negative (NEGATIVE); KETONES,URINE Negative (NEGATIVE); LEUKOCYTE ESTERASE ,URINE Small (NEGATIVE); NITRATE,URINE Negative (NEGATIVE); OCCULT BLOOD,URINE Negative (NEGATIVE); PROTEIN,URINE POS 1+ mg/dL (NEGATIVE)
[2020-08-31 15:02] LABS: BACTERIA,URINE Few /HPF (None Seen); MUCUS,URINE Moderate LPF (None Seen); SQUAMOUS EPITHELIAL CELL,UR Few /HPF (0-2)
[2020-08-31 15:05] VITALS: BP 147/67
[2020-08-31 15:34] LABS: ABG BASE EXCESS -1.2 mmol/L (-2.0-3.0); ABG HCO3 24.1 mmol/L (21.0-28.0); ABG OXYGEN SATURATION 85.5 % (95.0-99.0); ABG PCO2 42 mmHg (35-48)
[2020-08-31] MEDS ORDERED: CEFTRIAXONE 1G VIAL IVP STA ×2 (15:39→17:21)
[2020-08-31 16:15] LABS: CREATINE KINASE, TOTAL 263 U/L (21-232); MYOGLOBIN 105 ng/mL (10-92); TROPONIN I < 0.04 ng/mL (0.00-0.06)
[2020-08-31 16:43] VITALS: BP 143/84
[2020-08-31] MEDS ORDERED: FUROSEMIDE 40MG VIAL IV ONE (17:30)
[2020-08-31] MEDS ORDERED: NITROGLYCERIN PATCH 0.2 MG/HR TD SCH (18:00)
[2020-08-31 19:13] VITALS: BP 153/78
[2020-08-31 21:30] VITALS: BP 150/59
[2020-08-31 23:30] VITALS: BP 124/49
[2020-09-01] VITALS (11 sets, daily range): BP systolic 105–140; BP diastolic 53–76
[2020-09-01] MEDS ORDERED: AZITHROMYCIN 500MG+NS 250ML 250 ML IV ONE (00:36)
[2020-09-01] MEDS ORDERED: ALPRAZOLAM 0.25 MG TABLET ONE (00:36)
[2020-09-01] MEDS: ALPRAZOLAM 0.25 MG TABLET PO PRN ×2 (01:11→03:48)
[2020-09-01] MEDS ORDERED: CEFTRIAXONE 1G VIAL ONE (06:51)
[2020-09-01] MEDS ORDERED: LIDOCAINE HCL-MPF 1% 2ML VIAL IJ PRN (08:45)
[2020-09-01] MEDS ORDERED: POTASSIUM CHLORIDE 20MEQ/100ML 100 ML IV PRN (08:45)
[2020-09-01] MEDS: LEVOFLOXACIN 750 MG/D5W 150 ML 150 ML IV SCH (09:00)
[2020-09-01] MEDS: FAMOTIDINE 20MG TAB PO SCH ×2 (09:23→20:57)
[2020-09-01] MEDS: ENOXAPARIN SODIUM 40 MG/0.4 ML SYRINGE SQ SCH (09:25)
[2020-09-01] MEDS ORDERED: SITA100T12 PO (09:43)
[2020-09-01] MEDS ORDERED: METO-408 PO (09:45)
[2020-09-01] MEDS ORDERED: DRON400T7 PO (09:46)
[2020-09-01] MEDS ORDERED: VITA1CAP PO (09:47)
[2020-09-01] MEDS ORDERED: FISH1CAP27 PO (09:47)
[2020-09-01] MEDS ORDERED: MECO10005 PO (09:48)
[2020-09-01 10:10] LABS: INR 2.39 (0.85-1.15); PROTHROMBIN TIME 24.1 SEC (9.6-11.6)
[2020-09-01] MEDS: AZITHROMYCIN 500MG+NS 250ML IV SCH (20:57)
[2020-09-02] VITALS (7 sets, daily range): BP systolic 127–164; BP diastolic 50–80
[2020-09-02 04:26] LABS: EOSINOPHILS % (AUTO) 7.1 % (0.0-8.0); HEMATOCRIT 27.6 % (42-54); LYMPHOCYTES % (AUTO) 13.2 % (21.0-51.0); MEAN CORPUSCULAR HEMOGLOBIN 33.8 pg (27.0-33.0); MEAN CORPUSCULAR HGB CONC 32.2 g/dL (32.0-36.0); MEAN CORPUSCULAR VOLUME 104.9 fL (79-99); MONOCYTES % (AUTO) 12.7 % (3.0-13.0); NEUTROPHILS % (AUTO) 65.7 % (40.0-77.0); PLATELET COUNT (AUTO) 117 K/uL (130-400); RED BLOOD CELL COUNT(AUTO) 2.63 MIL/uL (4.50-6.20); RED CELL DISTRIBUTION WIDTH 14.7 % (11.0-15.5)
[2020-09-02 04:40] LABS: ALBUMIN 2.9 g/dL (3.5-5.0); BILIRUBIN,TOTAL 0.8 mg/dL (0.2-1.0); CREATININE 1.2 mg/dL (0.5-1.5); POTASSIUM 3.8 mmol/L (3.5-5.1); TOTAL PROTEIN, SERUM 6.8 g/dL (6.0-8.3)
[2020-09-02 04:55] LABS: B-TYPE NATRIURETIC PEPTIDE 624 pg/mL (0-100)
[2020-09-02 05:48] LABS: ABG BASE EXCESS -1.9 mmol/L (-2.0-3.0); ABG HCO3 24.1 mmol/L (21.0-28.0); ABG OXYGEN SATURATION 92.5 % (95.0-99.0); ABG PCO2 45 mmHg (35-48)
[2020-09-02] MEDS: FAMOTIDINE 20MG TAB PO SCH ×2 (09:32→19:55)
[2020-09-02] MEDS: AZITHROMYCIN 500MG+NS 250ML IV SCH ×2 (09:32→21:22)
[2020-09-02] MEDS: ENOXAPARIN SODIUM 40 MG/0.4 ML SYRINGE SQ SCH (09:32)
[2020-09-02] MEDS: LEVOFLOXACIN 750 MG/D5W 150 ML 150 ML IV SCH (09:33)
[2020-09-02] MEDS ORDERED: 0.9% NACL 250ML 250 ML ONE (20:45)
[2020-09-02] MEDS ORDERED: ONDANSETRON ODT 4MG TAB PO PRN (21:15)
[2020-09-02] MEDS: FUROSEMIDE 20MG VIAL IV SCH (21:59)
[2020-09-03 07:30] VITALS: BP 165/78
[2020-09-03] MEDS: AZITHROMYCIN 500MG+NS 250ML IV SCH ×2 (08:52→20:44)
[2020-09-03] MEDS: LEVOFLOXACIN 750 MG/D5W 150 ML 150 ML IV SCH (08:54)
[2020-09-03] MEDS: IMATINIB MESYLATE 400 MG PO SCH (09:00)
[2020-09-03] MEDS: MECOBALAMIN 500 MCG PO SCH (09:00)
[2020-09-03] MEDS ORDERED: FUROSEMIDE 20 MG TABLET PO SCH (09:00)
[2020-09-03] MEDS: DRONEDARONE HYDROCHLORIDE 400 MG TABLET PO SCH ×2 (09:06→20:37)
[2020-09-03] MEDS: VITAMIN B COMPLEX 1 CAPSULE PO SCH (09:06)
[2020-09-03] MEDS: FISH OIL 1000 MG/CAP PO SCH (09:06)
[2020-09-03] MEDS: FUROSEMIDE 20MG VIAL IV SCH ×2 (09:07→20:44)
[2020-09-03] MEDS: METOPROLOL SUCCINATE 50 MG TAB.SR.24H PO SCH (09:07)
[2020-09-03] MEDS: FAMOTIDINE 20MG TAB PO SCH ×2 (09:07→20:37)
[2020-09-03] MEDS: LISINOPRIL 5 MG TABLET PO SCH (09:07)
[2020-09-03] MEDS: ENOXAPARIN SODIUM 40 MG/0.4 ML SYRINGE SQ SCH (09:08)
[2020-09-03 11:00] VITALS: BP 114/47
[2020-09-03 16:00] VITALS: BP 139/59
[2020-09-03 20:12] VITALS: BP 164/86
[2020-09-03] MEDS: TAMSULOSIN HCL 0.4 MG CAP.ER.24H PO SCH (20:37)
[2020-09-03] MEDS: SIMVASTATIN 10 MG TABLET PO SCH (20:38)
[2020-09-04] VITALS (7 sets, daily range): BP systolic 112–161; BP diastolic 59–75
[2020-09-04] MEDS: ALPRAZOLAM 0.25 MG TABLET PO PRN (01:13)
[2020-09-04 05:45] LABS: HEMATOCRIT 24.1 % (42-54); MEAN CORPUSCULAR HEMOGLOBIN 34.8 pg (27.0-33.0); MEAN CORPUSCULAR HGB CONC 33.6 g/dL (32.0-36.0); MEAN CORPUSCULAR VOLUME 103.4 fL (79-99); RED BLOOD CELL COUNT(AUTO) 2.33 MIL/uL (4.50-6.20); RED CELL DISTRIBUTION WIDTH 14.2 % (11.0-15.5); WHITE BLOOD COUNT (AUTO) 3.2 K/uL (4.8-10.8)
[2020-09-04 05:53] LABS: INR 1.96 (0.85-1.15); PROTHROMBIN TIME 20.1 SEC (9.6-11.6)
[2020-09-04 05:54] LABS: PARTIAL THROMBOPLASTIN TIME 39.6 SEC (26.3-35.5)
[2020-09-04 06:10] LABS: POTASSIUM 3.4 mmol/L (3.5-5.1)
[2020-09-04] MEDS: MECOBALAMIN 500 MCG PO SCH (09:00)
[2020-09-04] MEDS: IMATINIB MESYLATE 400 MG PO SCH (09:00)
[2020-09-04] MEDS: LEVOFLOXACIN 750 MG/D5W 150 ML 150 ML IV SCH (10:30)
[2020-09-04] MEDS: VITAMIN B COMPLEX 1 CAPSULE PO SCH (10:35)
[2020-09-04] MEDS: DRONEDARONE HYDROCHLORIDE 400 MG TABLET PO SCH ×2 (10:35→22:10)
[2020-09-04] MEDS: FISH OIL 1000 MG/CAP PO SCH (10:35)
[2020-09-04] MEDS: FAMOTIDINE 20MG TAB PO SCH ×2 (10:36→22:10)
[2020-09-04] MEDS: LISINOPRIL 5 MG TABLET PO SCH (10:38)
[2020-09-04] MEDS: METOPROLOL SUCCINATE 50 MG TAB.SR.24H PO SCH (10:38)
[2020-09-04] MEDS: FUROSEMIDE 20MG VIAL IV SCH (10:39)
[2020-09-04] MEDS: ENOXAPARIN SODIUM 40 MG/0.4 ML SYRINGE SQ SCH (10:39)
[2020-09-04] MEDS: AZITHROMYCIN 500MG+NS 250ML IV SCH (10:46)
[2020-09-04] MEDS: KCL 20 MEQ ERTAB PO PRN ×2 (11:27→14:59)
[2020-09-04] MEDS: MAGNESIUM 2GM PREMIX 50ML 50 ML IV SCH (14:58)
[2020-09-04] MEDS ORDERED: WARFARIN SODIUM 5 MG TAB PO SCH (16:00)
[2020-09-04] MEDS: FUROSEMIDE 40 MG TABLET PO SCH (17:00)
[2020-09-04] MEDS: TAMSULOSIN HCL 0.4 MG CAP.ER.24H PO SCH (22:10)
[2020-09-04] MEDS: SIMVASTATIN 10 MG TABLET PO SCH (22:10)
[2020-09-05 03:45] VITALS: BP 116/58
[2020-09-05 05:19] LABS: HEMATOCRIT 23.6 % (42-54); MEAN CORPUSCULAR HEMOGLOBIN 34.5 pg (27.0-33.0); MEAN CORPUSCULAR HGB CONC 33.1 g/dL (32.0-36.0); MEAN CORPUSCULAR VOLUME 104.4 fL (79-99); RED BLOOD CELL COUNT(AUTO) 2.26 MIL/uL (4.50-6.20); WHITE BLOOD COUNT (AUTO) 3.6 K/uL (4.8-10.8)
[2020-09-05 05:30] LABS: INR 1.87 (0.85-1.15); PROTHROMBIN TIME 19.3 SEC (9.6-11.6)
[2020-09-05 05:32] LABS: PARTIAL THROMBOPLASTIN TIME 39.4 SEC (26.3-35.5)
[2020-09-05 05:39] LABS: MAGNESIUM 2.1 mg/dL (1.80-2.40); POTASSIUM 3.9 mmol/L (3.5-5.1)
[2020-09-05 05:49] LABS: PHOSPHORUS 2.4 mg/dL (2.5-4.9)
[2020-09-05 06:21] LABS: ABG BASE EXCESS 3.4 mmol/L (-2.0-3.0); ABG HCO3 27.4 mmol/L (21.0-28.0); ABG OXYGEN SATURATION 77.9 % (95.0-99.0); ABG PCO2 40 mmHg (35-48)
[2020-09-05 07:30] VITALS: BP 110/56
[2020-09-05 07:45] LABS: ABG BASE EXCESS 3.8 mmol/L (-2.0-3.0); ABG HCO3 28.3 mmol/L (21.0-28.0); ABG OXYGEN SATURATION 88.1 % (95.0-99.0); ABG PCO2 42 mmHg (35-48)
[2020-09-05] MEDS: MECOBALAMIN 500 MCG PO SCH (09:00)
[2020-09-05] MEDS: IMATINIB MESYLATE 400 MG PO SCH (09:00)
[2020-09-05] MEDS: FUROSEMIDE 40 MG TABLET PO SCH ×2 (09:11→21:41)
[2020-09-05] MEDS: FAMOTIDINE 20MG TAB PO SCH ×2 (09:11→21:38)
[2020-09-05] MEDS: FISH OIL 1000 MG/CAP PO SCH (09:11)
[2020-09-05] MEDS: LISINOPRIL 5 MG TABLET PO SCH (09:12)
[2020-09-05] MEDS: METOPROLOL SUCCINATE 50 MG TAB.SR.24H PO SCH (09:13)
[2020-09-05] MEDS: DRONEDARONE HYDROCHLORIDE 400 MG TABLET PO SCH ×2 (09:13→21:38)
[2020-09-05] MEDS: VITAMIN B COMPLEX 1 CAPSULE PO SCH (09:13)
[2020-09-05] MEDS ORDERED: FUROSEMIDE 40MG VIAL IV SCH (10:15)
[2020-09-05 11:00] VITALS: BP 130/43
[2020-09-05 14:50] LABS: CREATININE 1.1 mg/dL (0.5-1.5); PHOSPHORUS 2.8 mg/dL (2.5-4.9); POTASSIUM 3.5 mmol/L (3.5-5.1)
[2020-09-05 15:30] VITALS: BP 123/78
[2020-09-05 20:20] VITALS: BP 153/94
[2020-09-05] MEDS: TAMSULOSIN HCL 0.4 MG CAP.ER.24H PO SCH (21:38)
[2020-09-05] MEDS: SIMVASTATIN 10 MG TABLET PO SCH (21:38)
[2020-09-05] MEDS: POTASSIUM CHLORIDE 10% ELIXIR 20 MEQ/15 ML UDCUP PO PRN ×2 (21:44→23:28)
[2020-09-05 23:26] VITALS: BP 148/64
[2020-09-06 04:00] VITALS: BP 109/50
[2020-09-06 05:21] LABS: HEMATOCRIT 21.7 % (42-54); MEAN CORPUSCULAR HEMOGLOBIN 35.1 pg (27.0-33.0); MEAN CORPUSCULAR HGB CONC 34.1 g/dL (32.0-36.0); MEAN CORPUSCULAR VOLUME 102.8 fL (79-99); RED BLOOD CELL COUNT(AUTO) 2.11 MIL/uL (4.50-6.20); WHITE BLOOD COUNT (AUTO) 3.5 K/uL (4.8-10.8)
[2020-09-06 05:32] LABS: CREATININE 1.2 mg/dL (0.5-1.5); MAGNESIUM 1.9 mg/dL (1.80-2.40); POTASSIUM 3.9 mmol/L (3.5-5.1)
[2020-09-06 07:30] VITALS: BP 134/56
[2020-09-06] MEDS: MECOBALAMIN 500 MCG PO SCH (09:00)
[2020-09-06] MEDS: IMATINIB MESYLATE 400 MG PO SCH (09:00)
[2020-09-06] MEDS: METOPROLOL SUCCINATE 50 MG TAB.SR.24H PO SCH (10:14)
[2020-09-06] MEDS: FISH OIL 1000 MG/CAP PO SCH (10:14)
[2020-09-06] MEDS: DRONEDARONE HYDROCHLORIDE 400 MG TABLET PO SCH ×2 (10:14→22:31)
[2020-09-06] MEDS: VITAMIN B COMPLEX 1 CAPSULE PO SCH (10:14)
[2020-09-06] MEDS: FAMOTIDINE 20MG TAB PO SCH ×2 (10:15→22:30)
[2020-09-06] MEDS: FUROSEMIDE 40 MG TABLET PO SCH ×2 (10:15→17:18)
[2020-09-06] MEDS: LISINOPRIL 5 MG TABLET PO SCH (10:15)
[2020-09-06 11:00] VITALS: BP 121/54
[2020-09-06] MEDS ORDERED: FUROSEMIDE 40MG VIAL IV SCH (11:45)
[2020-09-06 16:00] VITALS: BP 143/81
[2020-09-06 19:35] VITALS: BP 114/45
[2020-09-06] MEDS ORDERED: MAGNESIUM OXIDE 400 MG TABLET PO SCH (21:45)
[2020-09-06] MEDS: TAMSULOSIN HCL 0.4 MG CAP.ER.24H PO SCH (22:30)
[2020-09-06] MEDS: SIMVASTATIN 10 MG TABLET PO SCH (22:31)
[2020-09-07 00:17] VITALS: BP 109/44
[2020-09-07 03:45] VITALS: BP 120/53
[2020-09-07 04:28] LABS: CREATININE 1.2 mg/dL (0.5-1.5); MAGNESIUM 1.8 mg/dL (1.80-2.40); POTASSIUM 3.2 mmol/L (3.5-5.1)
[2020-09-07 08:00] VITALS: BP 111/51
[2020-09-07] MEDS: IMATINIB MESYLATE 400 MG PO SCH (09:00)
[2020-09-07] MEDS: MECOBALAMIN 500 MCG PO SCH (09:00)
[2020-09-07] MEDS: FISH OIL 1000 MG/CAP PO SCH (10:22)
[2020-09-07] MEDS: METOPROLOL SUCCINATE 50 MG TAB.SR.24H PO SCH (10:23)
[2020-09-07] MEDS: FAMOTIDINE 20MG TAB PO SCH ×2 (10:24→21:36)
[2020-09-07] MEDS: LISINOPRIL 5 MG TABLET PO SCH (10:24)
[2020-09-07] MEDS: FUROSEMIDE 40 MG TABLET PO SCH ×3 (10:24→16:42)
[2020-09-07] MEDS: DRONEDARONE HYDROCHLORIDE 400 MG TABLET PO SCH ×2 (10:27→21:36)
[2020-09-07] MEDS: VITAMIN B COMPLEX 1 CAPSULE PO SCH (10:28)
[2020-09-07 12:00] VITALS: BP 131/42
[2020-09-07] MEDS: METOLAZONE 2.5 MG TABLET PO SCH (14:01)
[2020-09-07 16:00] VITALS: BP 117/44
[2020-09-07] MEDS: WARFARIN SODIUM 1 MG TAB PO SCH ×2 (16:27→16:43)
[2020-09-07] MEDS: POTASSIUM CHLORIDE 10% ELIXIR 20 MEQ/15 ML UDCUP PO PRN ×2 (16:49→21:36)
[2020-09-07 19:30] VITALS: BP 122/53
[2020-09-07] MEDS: TAMSULOSIN HCL 0.4 MG CAP.ER.24H PO SCH (21:36)
[2020-09-07] MEDS: SIMVASTATIN 10 MG TABLET PO SCH (21:36)
[2020-09-08 00:16] VITALS: BP 116/50
[2020-09-08 03:30] VITALS: BP 95/52
[2020-09-08 06:08] LABS: HEMATOCRIT 25.5 % (42-54); MEAN CORPUSCULAR HGB CONC 33.7 g/dL (32.0-36.0); MEAN CORPUSCULAR VOLUME 103.7 fL (79-99); RED BLOOD CELL COUNT(AUTO) 2.46 MIL/uL (4.50-6.20); RED CELL DISTRIBUTION WIDTH 13.6 % (11.0-15.5)
[2020-09-08 06:22] LABS: INR 1.86 (0.85-1.15); PROTHROMBIN TIME 19.2 SEC (9.6-11.6)
[2020-09-08 06:30] LABS: ALBUMIN 2.9 g/dL (3.5-5.0); CREATININE 1.2 mg/dL (0.5-1.5); MAGNESIUM 1.8 mg/dL (1.80-2.40); PHOSPHORUS 4.3 mg/dL (2.5-4.9); POTASSIUM 3.3 mmol/L (3.5-5.1); TOTAL PROTEIN, SERUM 6.4 g/dL (6.0-8.3)
[2020-09-08] MEDS ORDERED: WARFARIN SODIUM 5 MG TAB PO SCH (09:30)
[2020-09-08 09:56] VITALS: BP 109/48
[2020-09-08] MEDS: FUROSEMIDE 40 MG TABLET PO SCH ×2 (10:07→17:10)
[2020-09-08] MEDS: VITAMIN B COMPLEX 1 CAPSULE PO SCH (10:07)
[2020-09-08] MEDS: FISH OIL 1000 MG/CAP PO SCH (10:08)
[2020-09-08] MEDS: DRONEDARONE HYDROCHLORIDE 400 MG TABLET PO SCH ×2 (10:08→21:05)
[2020-09-08] MEDS: LISINOPRIL 5 MG TABLET PO SCH (10:08)
[2020-09-08] MEDS: FAMOTIDINE 20MG TAB PO SCH ×2 (10:09→21:05)
[2020-09-08] MEDS: METOLAZONE 2.5 MG TABLET PO SCH (10:09)
[2020-09-08] MEDS: METOPROLOL SUCCINATE 50 MG TAB.SR.24H PO SCH (10:09)
[2020-09-08 12:00] VITALS: BP 151/37
[2020-09-08] MEDS: MAGNESIUM 2GM PREMIX 50ML 50 ML IV SCH (12:30)
[2020-09-08] MEDS: POTASSIUM CHLORIDE 10% ELIXIR 20 MEQ/15 ML UDCUP PO PRN ×2 (12:31→17:10)
[2020-09-08 16:00] VITALS: BP 121/63
[2020-09-08 19:40] VITALS: BP 132/37
[2020-09-08] MEDS ORDERED: WARFARIN SODIUM 10 MG TABLET PO SCH (20:00)
[2020-09-08] MEDS: TAMSULOSIN HCL 0.4 MG CAP.ER.24H PO SCH (21:04)
[2020-09-08] MEDS: SIMVASTATIN 10 MG TABLET PO SCH (21:04)
[2020-09-08] MEDS: ENOXAPARIN SODIUM 80 MG/0.8 ML SQ SCH (21:06)
[2020-09-09] VITALS (7 sets, daily range): BP systolic 92–142; BP diastolic 35–54
[2020-09-09 04:40] LABS: HEMATOCRIT 25.2 % (42-54); MEAN CORPUSCULAR HEMOGLOBIN 34.6 pg (27.0-33.0); MEAN CORPUSCULAR HGB CONC 33.7 g/dL (32.0-36.0); MEAN CORPUSCULAR VOLUME 102.4 fL (79-99); RED BLOOD CELL COUNT(AUTO) 2.46 MIL/uL (4.50-6.20); RED CELL DISTRIBUTION WIDTH 13.4 % (11.0-15.5); WHITE BLOOD COUNT (AUTO) 4.4 K/uL (4.8-10.8)
[2020-09-09 04:54] LABS: INR 2.64 (0.85-1.15); PROTHROMBIN TIME 26.3 SEC (9.6-11.6)
[2020-09-09 04:58] LABS: CREATININE 1.3 mg/dL (0.5-1.5); MAGNESIUM 1.8 mg/dL (1.80-2.40); PHOSPHORUS 4.1 mg/dL (2.5-4.9); POTASSIUM 3.3 mmol/L (3.5-5.1)
[2020-09-09] MEDS: MAGNESIUM 2GM PREMIX 50ML 50 ML IV SCH (06:11)
[2020-09-09] MEDS: KCL 20 MEQ ERTAB PO PRN (06:11)
[2020-09-09] MEDS: MECOBALAMIN 500 MCG PO SCH (09:00)
[2020-09-09] MEDS: VITAMIN B COMPLEX 1 CAPSULE PO SCH (10:39)
[2020-09-09] MEDS: FAMOTIDINE 20MG TAB PO SCH ×2 (10:39→21:02)
[2020-09-09] MEDS: DRONEDARONE HYDROCHLORIDE 400 MG TABLET PO SCH ×2 (10:39→21:02)
[2020-09-09] MEDS: LISINOPRIL 5 MG TABLET PO SCH (10:39)
[2020-09-09] MEDS: METOLAZONE 2.5 MG TABLET PO SCH (10:39)
[2020-09-09] MEDS: METOPROLOL SUCCINATE 50 MG TAB.SR.24H PO SCH (10:40)
[2020-09-09] MEDS: FISH OIL 1000 MG/CAP PO SCH (10:41)
[2020-09-09] MEDS: ENOXAPARIN SODIUM 80 MG/0.8 ML SQ SCH ×2 (10:41→21:06)
[2020-09-09] MEDS: IMATINIB MESYLATE 400 MG PO SCH (10:42)
[2020-09-09] MEDS: FUROSEMIDE 40 MG TABLET PO SCH (17:23)
[2020-09-09] MEDS: SIMVASTATIN 10 MG TABLET PO SCH (21:01)
[2020-09-09] MEDS: TAMSULOSIN HCL 0.4 MG CAP.ER.24H PO SCH (21:02)
[2020-09-09] MEDS ORDERED: PHARMACY COMMUNICATION MISC SCH (22:30)
[2020-09-09] MEDS ORDERED: WARFARIN SODIUM 7.5 MG TAB PO SCH (22:30)
[2020-09-10 04:00] VITALS: BP 108/61
[2020-09-10 04:52] LABS: CREATININE 1.4 mg/dL (0.5-1.5); POTASSIUM 3.3 mmol/L (3.5-5.1)
[2020-09-10 04:57] LABS: INR 4.32 (0.85-1.15); PROTHROMBIN TIME 41.2 SEC (9.6-11.6)
[2020-09-10] MEDS ORDERED: PHARMACY COMMUNICATION MISC SCH (06:00)
[2020-09-10] MEDS: KCL 20 MEQ ERTAB PO PRN (06:45)
[2020-09-10 07:30] VITALS: BP 112/32
[2020-09-10] MEDS ORDERED: WARFARIN SODIUM 5 MG TAB PO SCH (09:00)
[2020-09-10] MEDS: FISH OIL 1000 MG/CAP PO SCH (09:14)
[2020-09-10] MEDS: FUROSEMIDE 40 MG TABLET PO SCH ×2 (09:15→17:40)
[2020-09-10] MEDS: LISINOPRIL 5 MG TABLET PO SCH (09:15)
[2020-09-10] MEDS: FAMOTIDINE 20MG TAB PO SCH ×2 (09:15→21:08)
[2020-09-10] MEDS: DRONEDARONE HYDROCHLORIDE 400 MG TABLET PO SCH ×2 (09:15→21:07)
[2020-09-10] MEDS: VITAMIN B COMPLEX 1 CAPSULE PO SCH (09:15)
[2020-09-10] MEDS: METOLAZONE 2.5 MG TABLET PO SCH (09:15)
[2020-09-10] MEDS: METOPROLOL SUCCINATE 50 MG TAB.SR.24H PO SCH (09:16)
[2020-09-10] MEDS: IMATINIB MESYLATE 400 MG PO SCH (09:30)
[2020-09-10] MEDS: POTASSIUM CHLORIDE 10% ELIXIR 20 MEQ/15 ML UDCUP PO PRN ×2 (09:30→21:09)
[2020-09-10] MEDS: MECOBALAMIN 500 MCG PO SCH (09:31)
[2020-09-10 09:52] LABS: INR 4.17 (0.85-1.15); PROTHROMBIN TIME 39.9 SEC (9.6-11.6)
[2020-09-10 11:00] VITALS: BP 109/56
[2020-09-10 16:00] VITALS: BP 116/39
[2020-09-10 20:00] VITALS: BP 123/50
[2020-09-10] MEDS: TAMSULOSIN HCL 0.4 MG CAP.ER.24H PO SCH (21:07)
[2020-09-10] MEDS: SIMVASTATIN 10 MG TABLET PO SCH (21:08)
[2020-09-11 00:48] VITALS: BP 110/49
[2020-09-11 04:00] VITALS: BP 127/50
[2020-09-11 05:28] LABS: HEMATOCRIT 27.3 % (42-54); MEAN CORPUSCULAR HEMOGLOBIN 34.7 pg (27.0-33.0); MEAN CORPUSCULAR HGB CONC 33.7 g/dL (32.0-36.0); RED BLOOD CELL COUNT(AUTO) 2.65 MIL/uL (4.50-6.20); RED CELL DISTRIBUTION WIDTH 13.2 % (11.0-15.5); WHITE BLOOD COUNT (AUTO) 4.1 K/uL (4.8-10.8)
[2020-09-11 05:50] LABS: CREATININE 1.7 mg/dL (0.5-1.5); POTASSIUM 3.5 mmol/L (3.5-5.1)
[2020-09-11 06:15] LABS: INR 4.11 (0.85-1.15); PROTHROMBIN TIME 39.4 SEC (9.6-11.6)
[2020-09-11] MEDS ORDERED: 0.9% NACL 500ML IV.SOLN 500 ML IV ONE (07:57)
[2020-09-11 08:00] VITALS: BP 102/46
[2020-09-11] MEDS ORDERED: 0.9% NACL 500ML IV.SOLN 500 ML IV SCH (08:00)
[2020-09-11] MEDS: MECOBALAMIN 500 MCG PO SCH (09:00)
[2020-09-11] MEDS ORDERED: WARFARIN SODIUM 7.5 MG TAB PO SCH (09:00)
[2020-09-11] MEDS: IMATINIB MESYLATE 400 MG PO SCH (09:00)
[2020-09-11] MEDS: DRONEDARONE HYDROCHLORIDE 400 MG TABLET PO SCH ×2 (09:00→20:02)
[2020-09-11] MEDS: VITAMIN B COMPLEX 1 CAPSULE PO SCH (11:16)
[2020-09-11] MEDS: FAMOTIDINE 20MG TAB PO SCH ×2 (11:16→20:02)
[2020-09-11] MEDS: FISH OIL 1000 MG/CAP PO SCH (11:16)
[2020-09-11 12:00] VITALS: BP 112/61
[2020-09-11] MEDS: METOPROLOL SUCCINATE 50 MG TAB.SR.24H PO SCH (13:45)
[2020-09-11 15:35] LABS: CREATININE 1.8 mg/dL (0.5-1.5); POTASSIUM 3.4 mmol/L (3.5-5.1)
[2020-09-11 15:41] LABS: INR 3.74 (0.85-1.15); PROTHROMBIN TIME 36.2 SEC (9.6-11.6)
[2020-09-11 16:00] VITALS: BP 114/36
[2020-09-11] MEDS ORDERED: 0.9%NACL 1000ML 1,000 ML IV SCH (16:30)
[2020-09-11 20:00] VITALS: BP 116/42
[2020-09-11] MEDS: SIMVASTATIN 10 MG TABLET PO SCH (20:02)
[2020-09-11] MEDS: TAMSULOSIN HCL 0.4 MG CAP.ER.24H PO SCH (20:02)
[2020-09-11] MEDS: POTASSIUM CHLORIDE 10% ELIXIR 20 MEQ/15 ML UDCUP PO PRN ×2 (20:03→22:32)
[2020-09-12] VITALS: BP 110/40
[2020-09-12 04:00] VITALS: BP 112/40
[2020-09-12 04:54] LABS: HEMATOCRIT 24.9 % (42-54); MEAN CORPUSCULAR HEMOGLOBIN 34.1 pg (27.0-33.0); MEAN CORPUSCULAR HGB CONC 34.1 g/dL (32.0-36.0); RED BLOOD CELL COUNT(AUTO) 2.49 MIL/uL (4.50-6.20); RED CELL DISTRIBUTION WIDTH 12.9 % (11.0-15.5); WHITE BLOOD COUNT (AUTO) 4.2 K/uL (4.8-10.8)
[2020-09-12 05:08] LABS: INR 3.45 (0.85-1.15); PROTHROMBIN TIME 33.6 SEC (9.6-11.6)
[2020-09-12 05:12] LABS: CREATININE 1.7 mg/dL (0.5-1.5); MAGNESIUM 1.9 mg/dL (1.80-2.40); POTASSIUM 3.4 mmol/L (3.5-5.1)
[2020-09-12] MEDS: POTASSIUM CHLORIDE 10% ELIXIR 20 MEQ/15 ML UDCUP PO PRN ×2 (06:10→08:56)
[2020-09-12 08:00] VITALS: BP 106/43
[2020-09-12] MEDS: MECOBALAMIN 500 MCG PO SCH (08:48)
[2020-09-12] MEDS: IMATINIB MESYLATE 400 MG PO SCH (08:48)
[2020-09-12] MEDS: FAMOTIDINE 20MG TAB PO SCH (08:50)
[2020-09-12] MEDS: VITAMIN B COMPLEX 1 CAPSULE PO SCH (08:50)
[2020-09-12] MEDS: FISH OIL 1000 MG/CAP PO SCH (08:50)
[2020-09-12] MEDS ORDERED: DRONEDARONE HYDROCHLORIDE 400 MG TABLET PO SCH (09:00)
[2020-09-12] MEDS: METOPROLOL SUCCINATE 50 MG TAB.SR.24H PO SCH (09:00)
[2020-09-12 12:00] VITALS: BP 122/43
[2020-09-12 16:00] VITALS: BP 136/37
== END 2020-09-12 18:45 | disposition home or self-care (01) | DRG 871 ==
LOC: EDH 13:19 → INTOOBSV 21:15 → OBSVTOIN 21:15 → EDHIP 21:15 → 3DH 09-01 23:15
PROVIDERS: ADMIT Internal Medicine; ATTEND Internal Medicine
PROC: 5A09357 Assistance with Respiratory Ventilation, Less than 24 Consecutive Hours, Continuous Positive Airway Pressure (ICD-10-PCS; principal; 2020-08-31)
PROC: 5A09357 Assistance with Respiratory Ventilation, Less than 24 Consecutive Hours, Continuous Positive Airway Pressure (ICD-10-PCS; 2020-09-01)
PROC: 5A09357 Assistance with Respiratory Ventilation, Less than 24 Consecutive Hours, Continuous Positive Airway Pressure (ICD-10-PCS; 2020-09-02)
DX: A41.9 Sepsis, unspecified organism (principal); J96.01 Acute respiratory failure with hypoxia; G93.41 Metabolic encephalopathy; I50.43 Acute on chronic combined systolic (congestive) and diastolic (congestive) heart failure; N30.01 Acute cystitis with hematuria; N17.9 Acute kidney failure, unspecified; I11.0 Hypertensive heart disease with heart failure; E11.9 Type 2 diabetes mellitus without complications; E78.5 Hyperlipidemia, unspecified; I48.91 Unspecified atrial fibrillation; F03.90 Unspecified dementia, unspecified severity, without behavioral disturbance, psychotic disturbance, mood disturbance, and anxiety; I25.10 Atherosclerotic heart disease of native coronary artery without angina pectoris; N40.0 Benign prostatic hyperplasia without lower urinary tract symptoms; R79.1 Abnormal coagulation profile; Z20.822 Contact with and (suspected) exposure to COVID-19; Z79.01 Long term (current) use of anticoagulants; Z79.84 Long term (current) use of oral hypoglycemic drugs; Z79.899 Other long term (current) drug therapy; Z87.01 Personal history of pneumonia (recurrent); Z95.1 Presence of aortocoronary bypass graft; Z95.2 Presence of prosthetic heart valve; Z88.0 Allergy status to penicillin
CPT/HCPCS: 36415; 36600; 71045; 74176; 80048; 80053; 81001; 82550; 82803; 82948; 83735; 83874; 83880; 84100; 84484; 85025; 85027; 85610; 85730; 86140; 87088; 87635; 93005; 93306; 93356; 94660; 94760; 97039; C9803; G0378; J0456; J0696; J1650; J1940; J1956; J3475; J7030; J7040; J7050

== ENCOUNTER 2020-11-06 13:44 | Emergency (ER) | payer OTHER ==
[~2020-11-06] VITALS: Ht 172.7 cm; Wt 74.8 kg
[~2020-11-06 13:44] MED LIST changes: +DRON400T7 PO; +FISH1CAP27 PO; -LISI-809 PO; +MECO10005 PO; +METO-408 PO; -ONDA4TAB10 PO; +VITA1CAP PO
[2020-11-06 15:11] LABS: BASOPHILS % (AUTO) 1.3 % (0.0-5.0); EOSINOPHILS % (AUTO) 3.2 % (0.0-8.0); HEMATOCRIT 25.2 % (42-54); LYMPHOCYTES % (AUTO) 8.9 % (21.0-51.0); MEAN CORPUSCULAR HEMOGLOBIN 35.4 pg (27.0-33.0); MEAN CORPUSCULAR HGB CONC 34.1 g/dL (32.0-36.0); MEAN CORPUSCULAR VOLUME 103.7 fL (79-99); MONOCYTES % (AUTO) 7.9 % (3.0-13.0); NEUTROPHILS % (AUTO) 78.5 % (40.0-77.0); PLATELET COUNT (AUTO) 138 K/uL (130-400); RED BLOOD CELL COUNT(AUTO) 2.43 MIL/uL (4.50-6.20); RED CELL DISTRIBUTION WIDTH 14.4 % (11.0-15.5); WHITE BLOOD COUNT (AUTO) 5.6 K/uL (4.8-10.8)
[2020-11-06 15:26] LABS: CREATININE 1.3 mg/dL (0.5-1.5); POTASSIUM 3.3 mmol/L (3.5-5.1)
[2020-11-06 15:31] LABS: ALBUMIN 3.2 g/dL (3.5-5.0); BILIRUBIN,TOTAL 1.8 mg/dL (0.2-1.0); CRP QUANTITATIVE 22.8 mg/L (0.00-9.0); TOTAL PROTEIN, SERUM 7.1 g/dL (6.0-8.3)
[2020-11-06] MEDS ORDERED: IOHEXOL-350 50ML VIAL IV ONE (15:52)
[2020-11-06 16:28] VITALS: BP 130/50
[2020-11-06] MEDS ORDERED: POTASSIUM BICARB/CIT AC 25 MEQ TABLET.EFF PO ONE (16:30)
[2020-11-06] MEDS ORDERED: CLIN300C10 PO (16:52)
[2020-11-06 17:37] VITALS: BP 126/84
== END 2020-11-06 17:38 | disposition home or self-care (01) ==
LOC: EDH 13:44
DX: K11.20 Sialoadenitis, unspecified (principal); D64.9 Anemia, unspecified; E87.6 Hypokalemia; J90 Pleural effusion, not elsewhere classified; I11.0 Hypertensive heart disease with heart failure; I50.9 Heart failure, unspecified; E11.9 Type 2 diabetes mellitus without complications; I25.10 Atherosclerotic heart disease of native coronary artery without angina pectoris; Z79.01 Long term (current) use of anticoagulants; Z79.84 Long term (current) use of oral hypoglycemic drugs; Z79.899 Other long term (current) drug therapy; Z88.0 Allergy status to penicillin; Z95.0 Presence of cardiac pacemaker; Z95.1 Presence of aortocoronary bypass graft
CPT/HCPCS: 36415; 70491; 71045; 80053; 83605; 85025; 86140; 87040 ×2; 99285; Q9967

== ENCOUNTER 2020-11-11 21:45 | Inpatient (IN) | payer OTHER ==
[~2020-11-11] VITALS: Ht 170.2 cm; Wt 83.2 kg
[~2020-11-11 21:45] MED LIST changes: +CLIN300C10 PO
[2020-11-11 21:50] VITALS: BP 134/49
[2020-11-11] MEDS ORDERED: PANTOPRAZOLE 40 MG/VIAL IVP ONE (22:30)
[2020-11-11] MEDS ORDERED: METOCLOPRAMIDE 10 MG/2 ML VIAL IVP ONE (22:30)
[2020-11-11] MEDS ORDERED: LACTATED RINGERS 1000ML 1,000 ML IV ONE (22:30)
[2020-11-11] MEDS ORDERED: ONDANSETRON 4MG INJ IVP ONE (22:30)
[2020-11-11] MEDS ORDERED: FAMOTIDINE 20MG VIAL IV ONE (22:30)
[2020-11-11 22:49] LABS: BASOPHILS % (AUTO) 0.5 % (0.0-5.0); EOSINOPHILS % (AUTO) 0.2 % (0.0-8.0); HEMATOCRIT 22.8 % (42-54); LYMPHOCYTES % (AUTO) 4.4 % (21.0-51.0); MEAN CORPUSCULAR HEMOGLOBIN 34.6 pg (27.0-33.0); MEAN CORPUSCULAR HGB CONC 32.9 g/dL (32.0-36.0); MEAN CORPUSCULAR VOLUME 105.1 fL (79-99); MONOCYTES % (AUTO) 6.1 % (3.0-13.0); PLATELET COUNT (AUTO) 153 K/uL (130-400); RED BLOOD CELL COUNT(AUTO) 2.17 MIL/uL (4.50-6.20); RED CELL DISTRIBUTION WIDTH 14.5 % (11.0-15.5); WHITE BLOOD COUNT (AUTO) 5.9 K/uL (4.8-10.8)
[2020-11-11 23:02] LABS: CREATININE 1.7 mg/dL (0.5-1.5); POTASSIUM 3.7 mmol/L (3.5-5.1)
[2020-11-11 23:06] LABS: ALBUMIN 3.3 g/dL (3.5-5.0); BILIRUBIN,TOTAL 1.2 mg/dL (0.2-1.0); TOTAL PROTEIN, SERUM 7.5 g/dL (6.0-8.3)
[2020-11-11 23:21] VITALS: BP 135/54
[2020-11-12] VITALS (10 sets, daily range): BP systolic 117–148; BP diastolic 46–90
[2020-11-12] MEDS ORDERED: FUROSEMIDE 40MG VIAL IV ONE (00:30)
[2020-11-12] MEDS ORDERED: SIMV10TA97 PO (05:18)
[2020-11-12] MEDS ORDERED: FURO20TA4 PO (05:18)
[2020-11-12] MEDS ORDERED: TAMS-1 PO (05:18)
[2020-11-12] MEDS ORDERED: IMAT400T8 PO (05:18)
[2020-11-12] MEDS ORDERED: METO25TA6 PO (05:18)
[2020-11-12] MEDS ORDERED: SITA100T12 PO (05:19)
[2020-11-12] MEDS ORDERED: DRON400T7 PO (05:19)
[2020-11-12] MEDS ORDERED: KCL 20 MEQ ERTAB PO PRN (06:00)
[2020-11-12 06:08] LABS: BASOPHILS % (AUTO) 0.9 % (0.0-5.0); EOSINOPHILS % (AUTO) 0.3 % (0.0-8.0); HEMATOCRIT 22.1 % (42-54); LYMPHOCYTES % (AUTO) 5.7 % (21.0-51.0); MEAN CORPUSCULAR HEMOGLOBIN 34.3 pg (27.0-33.0); MEAN CORPUSCULAR HGB CONC 32.1 g/dL (32.0-36.0); MEAN CORPUSCULAR VOLUME 106.8 fL (79-99); MONOCYTES % (AUTO) 13.4 % (3.0-13.0); NEUTROPHILS % (AUTO) 79.3 % (40.0-77.0); PLATELET COUNT (AUTO) 157 K/uL (130-400); RED BLOOD CELL COUNT(AUTO) 2.07 MIL/uL (4.50-6.20); RED CELL DISTRIBUTION WIDTH 14.6 % (11.0-15.5); WHITE BLOOD COUNT (AUTO) 6.9 K/uL (4.8-10.8)
[2020-11-12 06:19] LABS: CREATININE 1.6 mg/dL (0.5-1.5); POTASSIUM 4.1 mmol/L (3.5-5.1)
[2020-11-12 06:24] LABS: ALBUMIN 3.1 g/dL (3.5-5.0); BILIRUBIN,TOTAL 1.1 mg/dL (0.2-1.0); INR 3.44 (0.85-1.15); MAGNESIUM 2.1 mg/dL (1.80-2.40); PHOSPHORUS 4.6 mg/dL (2.5-4.9); PROTHROMBIN TIME 33.5 SEC (9.6-11.6); TOTAL PROTEIN, SERUM 6.9 g/dL (6.0-8.3)
[2020-11-12 06:33] LABS: B-TYPE NATRIURETIC PEPTIDE 840 pg/mL (0-100)
[2020-11-12 06:46] LABS: ABG BASE EXCESS 3.3 mmol/L (-2.0-3.0); ABG HCO3 30.7 mmol/L (21.0-28.0); ABG OXYGEN SATURATION 96.6 % (95.0-99.0); ABG PCO2 58 mmHg (35-48)
[2020-11-12] MEDS ORDERED: HYDRALAZINE 20MG/ML VIAL IV PRN (07:00)
[2020-11-12] MEDS ORDERED: GUAIFENESIN-DM 200/20 MG 10 ML PO PRN (07:00)
[2020-11-12] MEDS ORDERED: LACTULOSE 20 GM/30 ML UDCUP PO PRN (07:00)
[2020-11-12] MEDS ORDERED: IPRATROPIUM 0.5 MG/2.5 ML INH IH PRN (07:00)
[2020-11-12] MEDS ORDERED: ACETAMINOPHEN 325 MG TAB PO PRN (07:00)
[2020-11-12 07:01] LABS: APPEARANCE,URINE Clear (CLEAR); BILIRUBIN,URINE Negative (NEGATIVE); COLOR,URINE Yellow (YELLOW); GLUCOSE, URINE (UA) Negative (NEGATIVE); KETONES,URINE Negative (NEGATIVE); LEUKOCYTE ESTERASE ,URINE Negative (NEGATIVE); NITRATE,URINE Negative (NEGATIVE); OCCULT BLOOD,URINE Negative (NEGATIVE); PROTEIN,URINE Negative (NEGATIVE); UROBILINOGEN,URINE 0.2 mg/dL (0.2-1.0)
[2020-11-12] MEDS: INSULIN HUMULIN R 100 UNIT/ML 3ML SQ SCH ×4 (07:30→21:00)
[2020-11-12] MEDS: DRONEDARONE HYDROCHLORIDE 400 MG TABLET PO SCH ×2 (09:00→21:01)
[2020-11-12] MEDS: METOPROLOL SUCCINATE 50 MG TAB.SR.24H PO SCH (09:00)
[2020-11-12] MEDS ORDERED: LEVOFLOXACIN 500 MG/D5W 100 ML 100 ML IV SCH (09:00)
[2020-11-12] MEDS: PANTOPRAZOLE 40 MG/VIAL IVP SCH (09:00)
[2020-11-12] MEDS: SIMVASTATIN 10 MG TABLET PO SCH (09:00)
[2020-11-12] MEDS: TAMSULOSIN HCL 0.4 MG CAP.ER.24H PO SCH (09:00)
[2020-11-12] MEDS: MECOBALAMIN 500 MCG PO SCH (09:00)
[2020-11-12] MEDS: POLYETHYLENE GLYCOL 3350 17 GM POWD.PACK PO SCH (09:00)
[2020-11-12] MEDS: IMATINIB 400 MG PO SCH (09:00)
[2020-11-12] MEDS: VITAMIN B COMPLEX 1 CAPSULE PO SCH (09:00)
[2020-11-12] MEDS: FUROSEMIDE 40MG VIAL IV SCH ×2 (09:30→13:55)
[2020-11-12 09:33] LABS: RETICULOCYTE % (AUTO) 2.31 % (0.42-2.23)
[2020-11-12 11:30] LABS: TOTAL PROTEIN, SERUM 6.6 g/dL (6.0-8.3)
[2020-11-12 12:18] LABS: % IRON SATURATION 15.5 % (30-44)
[2020-11-12] MEDS: METRONIDAZOLE 500MG/100ML BAG 100 ML IVPB SCH ×2 (13:55→22:23)
[2020-11-12] MEDS: KCL 20 MEQ ERTAB PO SCH (16:35)
[2020-11-12] MEDS ORDERED: PHYTONADIONE 10 MG in 0.9%NACL 50ML 50 ML IVPB SCH (19:00)
[2020-11-13] VITALS (8 sets, daily range): BP systolic 119–137; BP diastolic 42–71
[2020-11-13] MEDS: METRONIDAZOLE 500MG/100ML BAG 100 ML IVPB SCH ×3 (06:34→23:02)
[2020-11-13 07:25] LABS: MEAN CORPUSCULAR HEMOGLOBIN 34.5 pg (27.0-33.0); MEAN CORPUSCULAR HGB CONC 32.5 g/dL (32.0-36.0); MEAN CORPUSCULAR VOLUME 106.1 fL (79-99); RED BLOOD CELL COUNT(AUTO) 1.97 MIL/uL (4.50-6.20); RED CELL DISTRIBUTION WIDTH 14.8 % (11.0-15.5); WHITE BLOOD COUNT (AUTO) 5.6 K/uL (4.8-10.8)
[2020-11-13] MEDS ORDERED: DEXTROSE 50%-WATER 50 ML DISP.SYRIN IV ONE (07:26)
[2020-11-13] MEDS: INSULIN HUMULIN R 100 UNIT/ML 3ML SQ SCH ×4 (07:30→23:01)
[2020-11-13 07:33] LABS: CREATININE 1.6 mg/dL (0.5-1.5); POTASSIUM 4.2 mmol/L (3.5-5.1)
[2020-11-13] MEDS: FUROSEMIDE 20MG VIAL IV SCH ×2 (07:37→18:50)
[2020-11-13 07:40] LABS: HEMATOCRIT 20.9 % (42-54)
[2020-11-13 07:46] LABS: INR 2.93 (0.85-1.15)
[2020-11-13 07:47] LABS: PARTIAL THROMBOPLASTIN TIME 48.7 SEC (26.3-35.5)
[2020-11-13] MEDS: PANTOPRAZOLE 40 MG/VIAL IVP SCH (08:50)
[2020-11-13] MEDS: VITAMIN B COMPLEX 1 CAPSULE PO SCH (08:50)
[2020-11-13] MEDS: IMATINIB 400 MG PO SCH (08:50)
[2020-11-13] MEDS: TAMSULOSIN HCL 0.4 MG CAP.ER.24H PO SCH (08:50)
[2020-11-13] MEDS: LEVOFLOXACIN 250 MG/D5W 50ML 50 ML IVPB SCH (08:50)
[2020-11-13] MEDS: METOPROLOL SUCCINATE 50 MG TAB.SR.24H PO SCH (08:51)
[2020-11-13] MEDS: MECOBALAMIN 500 MCG PO SCH (08:51)
[2020-11-13] MEDS: POLYETHYLENE GLYCOL 3350 17 GM POWD.PACK PO SCH (08:51)
[2020-11-13] MEDS: DRONEDARONE HYDROCHLORIDE 400 MG TABLET PO SCH ×2 (08:51→23:01)
[2020-11-13] MEDS: SIMVASTATIN 10 MG TABLET PO SCH (08:51)
[2020-11-13] MEDS ORDERED: ONDANSETRON 4MG INJ ONE (12:59)
[2020-11-13] MEDS: ACETAMINOPHEN 325 MG TAB PO PRN (15:47)
[2020-11-13 16:07] LABS: INR 1.95 (0.85-1.15)
[2020-11-13] MEDS: KCL 20 MEQ ERTAB PO SCH (17:33)
[2020-11-13 23:17] LABS: HEMATOCRIT 23.1 % (42-54)
[2020-11-14] VITALS (7 sets, daily range): BP systolic 99–124; BP diastolic 45–74
[2020-11-14] MEDS: INSULIN HUMULIN R 100 UNIT/ML 3ML SQ SCH ×4 (06:07→21:00)
[2020-11-14] MEDS: FUROSEMIDE 20MG VIAL IV SCH ×2 (06:32→18:07)
[2020-11-14] MEDS: METRONIDAZOLE 500MG/100ML BAG 100 ML IVPB SCH ×3 (06:32→21:16)
[2020-11-14] MEDS: MECOBALAMIN 500 MCG PO SCH (09:00)
[2020-11-14] MEDS: DRONEDARONE HYDROCHLORIDE 400 MG TABLET PO SCH ×2 (09:00→21:16)
[2020-11-14] MEDS: PANTOPRAZOLE 40 MG/VIAL IVP SCH (09:17)
[2020-11-14] MEDS: METOPROLOL SUCCINATE 50 MG TAB.SR.24H PO SCH (09:18)
[2020-11-14] MEDS: VITAMIN B COMPLEX 1 CAPSULE PO SCH (09:18)
[2020-11-14] MEDS: SIMVASTATIN 10 MG TABLET PO SCH (09:18)
[2020-11-14] MEDS: LEVOFLOXACIN 250 MG/D5W 50ML 50 ML IVPB SCH (09:18)
[2020-11-14] MEDS: TAMSULOSIN HCL 0.4 MG CAP.ER.24H PO SCH (09:23)
[2020-11-14] MEDS: POLYETHYLENE GLYCOL 3350 17 GM POWD.PACK PO SCH (09:23)
[2020-11-14] MEDS: IMATINIB 400 MG PO SCH (09:23)
[2020-11-14 09:42] LABS: INR 2.28 (0.85-1.15); PROTHROMBIN TIME 23.1 SEC (9.6-11.6)
[2020-11-14] MEDS ORDERED: PHYTONADIONE 10 MG in 0.9%NACL 50ML 50 ML IVPB SCH (11:00)
[2020-11-14] MEDS: ONDANSETRON 4MG INJ IVP PRN ×2 (11:24→18:07)
[2020-11-14] MEDS: KCL 20 MEQ ERTAB PO SCH (18:34)
[2020-11-15 03:56] VITALS: BP 101/53
[2020-11-15 04:12] LABS: HEMATOCRIT 22.3 % (42-54); MEAN CORPUSCULAR HEMOGLOBIN 34.1 pg (27.0-33.0); MEAN CORPUSCULAR HGB CONC 33.2 g/dL (32.0-36.0); MEAN CORPUSCULAR VOLUME 102.8 fL (79-99); RED BLOOD CELL COUNT(AUTO) 2.17 MIL/uL (4.50-6.20); RED CELL DISTRIBUTION WIDTH 18.4 % (11.0-15.5); WHITE BLOOD COUNT (AUTO) 6.3 K/uL (4.8-10.8)
[2020-11-15 04:22] LABS: CREATININE 2.1 mg/dL (0.5-1.5); POTASSIUM 4.9 mmol/L (3.5-5.1)
[2020-11-15 04:24] LABS: INR 2.02 (0.85-1.15); PROTHROMBIN TIME 20.7 SEC (9.6-11.6)
[2020-11-15] MEDS: METRONIDAZOLE 500MG/100ML BAG 100 ML IVPB SCH (06:01)
[2020-11-15] MEDS: ACETAMINOPHEN 325 MG TAB PO PRN (06:10)
[2020-11-15] MEDS: ONDANSETRON 4MG INJ IVP PRN (06:10)
[2020-11-15] MEDS: FUROSEMIDE 20MG VIAL IV SCH (06:28)
[2020-11-15] MEDS: INSULIN HUMULIN R 100 UNIT/ML 3ML SQ SCH (06:29)
[2020-11-15 08:00] VITALS: BP 99/49
[2020-11-15] MEDS: METOPROLOL SUCCINATE 50 MG TAB.SR.24H PO SCH (09:00)
[2020-11-15] MEDS ORDERED: 0.9% NACL 250ML IVPB SCH (09:00)
[2020-11-15] MEDS ORDERED: DOXYCYCLINE 100MG IVPB (VIAL) IVPB SCH (09:00)
[2020-11-15] MEDS: MECOBALAMIN 500 MCG PO SCH (09:00)
[2020-11-15] MEDS: PANTOPRAZOLE 40 MG/VIAL IVP SCH (09:30)
[2020-11-15] MEDS: TAMSULOSIN HCL 0.4 MG CAP.ER.24H PO SCH (09:31)
[2020-11-15] MEDS: IMATINIB 400 MG PO SCH (09:31)
[2020-11-15] MEDS: POLYETHYLENE GLYCOL 3350 17 GM POWD.PACK PO SCH (09:31)
[2020-11-15] MEDS: SIMVASTATIN 10 MG TABLET PO SCH (09:31)
[2020-11-15] MEDS: DRONEDARONE HYDROCHLORIDE 400 MG TABLET PO SCH (09:31)
[2020-11-15] MEDS: VITAMIN B COMPLEX 1 CAPSULE PO SCH (09:31)
[2020-11-15] MEDS ORDERED: 0.9% NACL 250ML 250 ML IV SCH (10:30)
[2020-11-15] MEDS ORDERED: DOXYCYCLINE 100MG+NS 250ML IV SCH (10:30)
[2020-11-15] MEDS ORDERED: RENAL DOSE IV PRN (12:00)
== END 2020-11-15 12:33 | DRG 291 ==
LOC: EDH 21:45 → EDHIP 11-12 01:22 → OBSVTOIN 11-12 01:22 → 3BH 11-12 04:51 → EDHIP 11-12 05:14 → 4CH 11-14 03:54
PROVIDERS: ADMIT Internal Medicine Pulmonary Disease; ATTEND Internal Medicine Pulmonary Disease
PROC: 5A09357 Assistance with Respiratory Ventilation, Less than 24 Consecutive Hours, Continuous Positive Airway Pressure (ICD-10-PCS; 2020-11-12)
PROC: 30233K1 Transfusion of Nonautologous Frozen Plasma into Peripheral Vein, Percutaneous Approach (ICD-10-PCS; principal; 2020-11-13)
PROC: 30233N1 Transfusion of Nonautologous Red Blood Cells into Peripheral Vein, Percutaneous Approach (ICD-10-PCS; 2020-11-13)
PROC: 5A09357 Assistance with Respiratory Ventilation, Less than 24 Consecutive Hours, Continuous Positive Airway Pressure (ICD-10-PCS; 2020-11-13)
PROC: 4B02XSZ Measurement of Cardiac Pacemaker, External Approach (ICD-10-PCS; 2020-11-13)
PROC: 5A09357 Assistance with Respiratory Ventilation, Less than 24 Consecutive Hours, Continuous Positive Airway Pressure (ICD-10-PCS; 2020-11-14)
DX: I11.0 Hypertensive heart disease with heart failure (principal); J96.01 Acute respiratory failure with hypoxia; E87.2 Acidosis; D62 Acute posthemorrhagic anemia; D84.9 Immunodeficiency, unspecified; K57.90 Diverticulosis of intestine, part unspecified, without perforation or abscess without bleeding; I50.43 Acute on chronic combined systolic (congestive) and diastolic (congestive) heart failure; I48.0 Paroxysmal atrial fibrillation; E11.9 Type 2 diabetes mellitus without complications; E78.5 Hyperlipidemia, unspecified; I25.10 Atherosclerotic heart disease of native coronary artery without angina pectoris; F03.90 Unspecified dementia, unspecified severity, without behavioral disturbance, psychotic disturbance, mood disturbance, and anxiety; Z66 Do not resuscitate; R79.1 Abnormal coagulation profile; K59.00 Constipation, unspecified; Z88.0 Allergy status to penicillin; Z95.1 Presence of aortocoronary bypass graft; Z79.01 Long term (current) use of anticoagulants; Z86.16 Personal history of COVID-19; Z95.810 Presence of automatic (implantable) cardiac defibrillator; Z87.01 Personal history of pneumonia (recurrent)
CPT/HCPCS: 36415; 36600; 71045; 71250; 74018; 74176; 80048; 80053; 81003; 82140; 82270; 82550; 82607; 82728; 82803; 82948; 83615; 83690; 83735; 83874; 83880; 84100; 84145; 84155; 84443; 84484; 85014; 85018; 85025; 85027; 85610; 85730; 86850; 86900; 86901; 86923; 86927; 87040; 87088; 92610; 93005; 94660; 94664; C9113; G0378; J1940; J1956; J2405; J2765; J3430; J3490; J7070; P9016; P9017